=== PATIENT | female | born 1980 | race Caucasian/White ===

== ENCOUNTER 2017-01-09 17:40 | Inpatient (IN) | payer MEDICAID, OTHER ==
[2017-01-09 17:40] VITALS: BMI 26.6
--- NOTE | 2017-01-09 18:34 | C.PDOC ---
History Of Present Illness 36 year old pt presents to the ED with c/o right sided chest pain, SOB, cough, fever, and nausea that began today in the morning. Pt notes when coughing having green green sputum associated with fever to 104. Pt reports pain on inspiration and movement, and total body pain in which she is unable to describe well. Pt notes no infectious exposure and smokes 3 cigarettes a day. Pt denies diarrhea, dizziness, vomiting, or any other complaints. Pt reports chronic back pain for which she has a nerve stimulator in spine. Time Seen by Provider: 01/09/17 17:55 Chief Complaint (Nursing): Shortness Of Breath History Per: Patient History/Exam Limitations: no limitations Onset/Duration Of Symptoms: Hrs Current Symptoms Are (Timing): Still Present Severity: Mild Associated Symptoms: Nausea Exacerbating Factors: Movement, Deep Breathing Past Medical History Reviewed: Historical Data, Nursing Documentation, Vital Signs Vital Signs: Last Vital Signs Temp 98.9 F 01/09/17 17:43 Pulse 100 H 01/09/17 21:18 Resp 14 01/09/17 21:18 BP 110/64 01/09/17 21:18 Pulse Ox 100 01/09/17 22:13 - Medical History PMH: Anxiety, Arthritis, Asthma (SEASONAL), Back Problems, Depression Denies: Chronic Kidney Disease Surgical History: Tonsillectomy - [facility] Procedures ANESTH INJEC PERIPH NERV (09/01/14) ANESTH INJECT-SPIN CANAL (02/08/15) MONITORING NOS (02/23/14) INJECT STEROID (02/08/15) INJECT/INFUSE NEC (09/01/14) INJECTION INTO JOINT (09/01/14) PERIPH NERVE INJECT NEC (09/01/14) SPINAL CANAL INJECT NEC (04/21/15) Family History: States: Unknown Family Hx - Social History Hx Tobacco Use: Yes Hx Alcohol Use: No Hx Substance Use: No - Immunization History Hx Tetanus Toxoid Vaccination: No Hx Influenza Vaccination: No Hx Pneumococcal Vaccination: Yes Review Of Systems Except As Marked, All Systems Reviewed And Found Negative. Constitutional: Positive for: Fever (104 today) Cardiovascular: Positive for: Chest Pain (right sided) Respiratory: Positive for: Cough, Shortness of Breath Gastrointestinal: Positive for: Nausea. Negative for: Vomiting, Diarrhea Neurological: Negative for: Dizziness Physical Exam - Physical Exam Appears: Non-toxic, Other (uncomfortable) Skin: Warm, Dry Head: Atraumatic, Normacephalic Eye(s): bilateral: Normal Inspection Chest: Symmetrical Cardiovascular: No Rhythm Regular (tachycardia of 130), Other (Normal sounds) Respiratory: Rhonchi (Bilateral coarse rales), Other (Pain on inspiration. Deep wet cough.) Gastrointestinal/Abdominal: Soft, No Tenderness ED Course And Treatment - Laboratory Results Result Diagrams: 01/09/17 18:44 01/09/17 18:44 Lab Interpretation: Abnormal (elevated WBC 13.6 with left shift. Rapid flu negative) ECG Rhythm: Sinus Tachycardia (130) O2 Sat by Pulse Oximetry: 100 (Room air) Pulse Ox Interpretation: Normal - Radiology CXR: Interpreted by Nv CXR Interpretation: Yes: Other (RLL/RML infiltrate) - CT Scan/US CTA chest Other Rad Studies (CT/US): Read By Radiologist, Radiology Report Reviewed CT/US Interpretation: EXAM: CT Angiography Chest With Intravenous Contrast. CLINICAL HISTORY: 36 years old, female; Pain; Chest pain; Right-sided chest pain; Additional info: Chest pain,. tachycardia, pneumonia. TECHNIQUE: Axial computed tomographic angiography images of the chest with intravenous contrast using. pulmonary embolism protocol. This CT exam was performed using one or more of the following dose. reduction techniques: automated exposure control, adjustment of the mA and/or kV according to. patient size, and/or use of iterative reconstruction technique. Coronal and sagittal reformatted images were created and reviewed. CONTRAST: 100 mL of visipaque 320 administered intravenously. COMPARISON: No relevant prior studies available. FINDINGS: Pulmonary arteries: No filling defects are seen in the pulmonary arteries or in its visualized. tributaries. Aorta: The aorta and the great vessels are normal. Negative for dissection. Lungs: There is infiltration and airspace disease associated with the right middle lobe medial margin. concerning for pneumonia, with differential diagnosis of aspiration. The remainder of the lungs are. clear. Small benign cystic foci of the medial right apex. No mass. Pleural space: Unremarkable. No significant effusion. No pneumothorax. Heart: Unremarkable. No cardiomegaly. No significant pericardial effusion. No evidence of RV. dysfunction. Thyroid: The visualized thyroid and the thoracic inlet appear normal. Bones/joints: No acute fracture. No dislocation. Soft tissues: Unremarkable. Lymph nodes: Small nonspecific hilar nodes are present probably reactive. Upper abdomen: The visualized portions of the patient's liver, spleen , left kidney, pancreas, and. adrenals are within normal limits. Tubes, lines and devices: Neural stimulator device and leads appear in place. IMPRESSION: No definitive signs for pulmonary embolism. No evidence for aortic dissection. There is airspace. disease consistent with pneumonia located within the right middle lobe medial segment. Remaining. lungs clear. Reactive nodes in the ralf. Postsurgical changes. Thank you for allowing us to participate in the care of your patient. Dictated and Authenticated by: Keshawn Sahni MD. 10:07 PM Eastern Time ([place] & [place]) Progress Note: Patient treated with IV Doxycycline due to multiple antibiotic allergies that she claims anaphylactic reaction to. Reevaluation Time: 19:15 Reassessment Condition: Unchanged (Patient continues to c/o chest pain. CT angio ordered.) - Physician Consult Information Time Consulting Physician Contacted: 22:43 Physician Contacted: Mynor Hermosillo Outcome Of Conversation: Patient to be admitted for pneumonia with intractable chest pain. Medical Decision Making Medical Decision Making: Plans: -EKG -CXR -Blood labs -IV Fluids -Reassess and disposition Disposition - Disposition Disposition: HOSPITALIZED Disposition Time: 22:43 Condition: SERIOUS - POA Present On Arrival: None - Clinical Impression Clinical Impression: Pneumonia - Scribe Statement The provider has reviewed the documentation as recorded by the Scribe Damien carbajal All medical record entries made by the Scribe were at my direction and personally dictated by me. I have reviewed the chart and agree that the record accurately reflects my personal performance of the history, physical exam, medical decision making, and the department course for this patient. I have also personally directed, reviewed, and agree with the discharge instructions and disposition.
[2017-01-09 18:49] LABS: BASO % 0.3 % (0.0-2.0); EOS % 0.1 % (0.0-4.0); HEMATOCRIT 42.1 % (34.0-47.0); LYMPH # 0.7 K/uL (1.0-4.3); LYMPH % 5.4 % (20.0-40.0); MEAN CELL VOLUME 87.4 fL (81.0-99.0); MEAN CORPUSCULAR HEMOGLOBIN 28.6 pg (27.0-31.0); MEAN CORPUSCULAR HGB CONC 32.7 g/dL (33.0-37.0); MEAN PLATELET VOLUME 10.8 fL (7.2-11.7); MONO # 0.6 K/uL (0.0-0.8); MONO % 4.8 % (0.0-10.0); PLATELET COUNT 133 K/uL (130-400); RED CELL DISTRIBUTION WIDTH 13.2 % (11.5-14.5); WHITE BLOOD COUNT 13.6 K/uL (4.8-10.8)
[2017-01-09 18:56] LABS: CHLORIDE 95 mmol/L (98-107); SODIUM 135 mmol/L (132-148)
[2017-01-09 18:57] LABS: POTASSIUM 4.2 mmol/L (3.6-5.2)
[2017-01-09 18:59] LABS: ALB/GLOB RATIO 1.3 (1.0-2.1); ALKALINE PHOSPHATASE 79 U/L (38-126); AST/SGOT 15 U/L (14-36); BILIRUBIN,TOTAL 0.4 mg/dL (0.2-1.3); BLOOD UREA NITROGEN 8 mg/dL (7-17); CARBON DIOXIDE 28 mmol/L (22-30); GFR AFRICAN-AMERICAN > 60; GLUCOSE,RANDOM 106 mg/dL (65-105); TOTAL PROTEIN 7.3 g/dL (6.3-8.3)
[2017-01-09 19:00] LABS: ALT/SGPT 15 U/L (9-52); CALCIUM 8.7 mg/dl (8.6-10.4)
--- NOTE | 2017-01-09 19:00 | RAD ---
PROCEDURE: CHEST RADIOGRAPH, 1 VIEW HISTORY: SOB COMPARISON: None FINDINGS: LUNGS: There is ill-defined airspace disease in the right lower lobe. The left lung is clear. PLEURA: No pneumothorax or pleural fluid seen. CARDIOVASCULAR: Normal. OSSEOUS STRUCTURES: No significant abnormalities. VISUALIZED UPPER ABDOMEN: Normal. OTHER FINDINGS: None. IMPRESSION: Question of right lower lobe atelectasis/developing pneumonia. Follow-up PA and lateral radiographs are recommended.
[2017-01-09] MEDS ORDERED: Iodixanol 320 MG/ML 100 ML BOTTLE IV ONE (20:04)
[2017-01-09 20:32] LABS: NEUTROPHIL 83 % (50-75); TOTAL CELLS COUNTED 100
--- NOTE | 2017-01-09 22:53 | CP.PCM.HP ---
<Shanti Orona - Last Filed: 01/10/17 00:56> History of Present Illness - History of Present Illness History of Present Illness: CC: " chest pain and cough" 36 year old female with PMHx of asthma, chronic back pain presents with 1 day history of chest pain and cough. Patient reports chest pain began this morning and has never happened before. Chest pain is right sided, non radiating, persistent and rated at a 10/10. Nothing makes the pain better or worse. She did not take any medications to help the pain or cough. Admits to measured fevers of up to 104 at home with associated chills. She also complaints of body aches and SOB. She reports some cough with green, non bloody sputum since the morning of admission. Denies palpitations, diarrhea, abdominal pain, vomiting, constipation. She is experiencing some nausea. Denies sick contacts or recent travel. She admits to generalized body aches and back pain. However patient has a history of chronic back pain and surgical placement of "spine machine". She denies leg pain, leg swelling and does not take any form of contraceptive. Admits to smoking 3 cigarets per day. PMHX: Asthma, anxiety, chronic back pain, radiculopathy. Medications: Ventolin, Percocet QID, Gabapentin TID, Flexeril 10 mg PO TID, Klonopin 1 mg TID. Allergies: Cipro, Keflex., PCN, Flagyl. Social Hx: smokes 3 cigs per day, denies alcohol and or illicit drug use. She lives at home with her children. Surgery Hx: Spinal surgery with placement of neuro stimulator (still in place), tonsils removed as a teenager. Family Hx: denies PMD: Dr. More Present on Admission - Present on Admission Any Indicators Present on Admission: No Review of Systems - Constitutional Constitutional: Chills, Fatigue, Fever - EENT Eyes: absent: Blurred Vision, Change in Vision Ears: absent: Dizziness - Cardiovascular Cardiovascular: Chest Pain, Dyspnea. absent: Diaphoresis, Edema, Leg Edema, Pedal Edema, Radiating Pain, Rapid Heart Rate - Respiratory Respiratory: Cough, Dyspnea, Dyspnea on Exertion. absent: Wheezing - Gastrointestinal Gastrointestinal: Nausea. absent: Abdominal Pain, Constipation, Cramping, Diarrhea, Vomiting - Genitourinary Genitourinary: absent: Difficulty Urinating, Dysuria - Musculoskeletal Musculoskeletal: Back Pain, Myalgias. absent: Numbness, Tingling - Neurological Neurological: absent: Dizziness, Numbness, Tingling - Psychiatric Psychiatric: Anxiety. absent: Depression - Endocrine Endocrine: absent: Palpitations Past Patient History - Infectious Disease Hx of Infectious Diseases: None - Past Medical History & Family History Past Medical History?: Yes - Past Social History Smoking Status: Current Some Days Smoker - CARDIAC Hx Cardiac Disorders: No - PULMONARY Hx Asthma: Yes (SEASONAL) - NEUROLOGICAL Hx Neurological Disorder: No - HEENT Hx HEENT Problems: No - RENAL Hx Chronic Kidney Disease: No - ENDOCRINE/METABOLIC Hx Endocrine Disorders: No - HEMATOLOGICAL/ONCOLOGICAL Hx Blood Disorders: Yes Hx Blood Transfusions: Yes Hx Blood Transfusion Reaction: No - INTEGUMENTARY Hx Dermatological Problems: No - MUSCULOSKELETAL/RHEUMATOLOGICAL Hx Arthritis: Yes - GASTROINTESTINAL Hx Gastrointestinal Disorders: No - GENITOURINARY/GYNECOLOGICAL Hx Genitourinary Disorders: No - PSYCHIATRIC Hx Anxiety: Yes Hx Depression: Yes Hx Substance Use: No - SURGICAL HISTORY Hx Tonsillectomy: Yes - ANESTHESIA Hx Anesthesia: Yes Hx Anesthesia Reactions: No Hx Malignant Hyperthermia: No Meds Allergies/Adverse Reactions: Allergies Allergy/AdvReac Type Severity Reaction Status Date / Time cephalexin monohydrate Allergy ANAPHYLAXIS Verified 03/19/16 14:24 [From Keflex] ciprofloxacin [From Cipro] Allergy ANAPHYLAXIS Verified 03/19/16 14:24 metronidazole [From Flagyl] Allergy ANAPHYLAXIS Verified 03/19/16 14:24 Penicillins Allergy ANAPHYLAXIS Verified 03/19/16 14:24 sulfamethoxazole Allergy ANAPHYLAXIS Verified 03/19/16 14:24 [From Bactrim] Physical Exam - Constitutional Appears: No Acute Distress - Head Exam Head Exam: NORMAL INSPECTION, NORMOCEPHALIC - Eye Exam Eye Exam: EOMI, Normal appearance Pupil Exam: NORMAL ACCOMODATION - ENT Exam ENT Exam: Mucous Membranes Moist - Respiratory Exam Respiratory Exam: Decreased Breath Sounds, NORMAL BREATHING PATTERN. absent: Rales, Rhonchi, Wheezes - Cardiovascular Exam Cardiovascular Exam: REGULAR RHYTHM, +S1, +S2 - GI/Abdominal Exam GI & Abdominal Exam: Normal Bowel Sounds, Soft. absent: Distended, Tenderness - Extremities Exam Extremities exam: Positive for: full ROM, normal inspection, tenderness. Negative for: pedal pulses present - Back Exam Back exam: absent: NORMAL INSPECTION (surgical scar), tenderness - Neurological Exam Neurological exam: Alert, CN II-XII Intact, Oriented x3 - Psychiatric Exam Psychiatric exam: Flat Affect, Normal Mood - Skin Skin Exam: Dry, Warm Results - Vital Signs Recent Vital Signs: Last Vital Signs Temp 98.9 F 01/09/17 17:43 Pulse 100 H 01/09/17 21:18 Resp 14 01/09/17 21:18 BP 110/64 01/09/17 21:18 Pulse Ox 100 01/09/17 22:50 - Labs Result Diagrams: 01/09/17 18:44 01/09/17 18:44 Labs: Laboratory Results - last 24 hr 01/09/17 01/09/17 18:02 18:44 WBC 13.6 H RBC 4.81 Hgb 13.7 Hct 42.1 MCV 87.4 MCH 28.6 MCHC 32.7 L RDW 13.2 Plt Count 133 MPV 10.8 Neut % (Auto) 89.4 H Lymph % (Auto) 5.4 L Beadle % (Auto) 4.8 Eos % (Auto) 0.1 Baso % (Auto) 0.3 Neut # 12.2 H Lymph # 0.7 L Beadle # 0.6 Eos # 0.0 Baso # 0.0 Neutrophils % (Manual) 83 H Band Neutrophils % 7 H Lymphocytes % (Manual) 6 L Monocytes % (Manual) 4 Platelet Estimate Normal D-Dimer, Quantitative < 200 Sodium 135 Potassium 4.2 Chloride 95 L Carbon Dioxide 28 Anion Gap 16 BUN 8 Creatinine 0.4 L Est GFR ( Amer) > 60 Est GFR (Non-Af Amer) > 60 Random Glucose 106 H Calcium 8.7 Total Bilirubin 0.4 AST 15 ALT 15 Alkaline Phosphatase 79 Total Protein 7.3 Albumin 4.1 Globulin 3.2 Albumin/Globulin Ratio 1.3 Influenza Typ A,B (EIA) Negative for flu a/b Assessment & Plan (1) Chest pain Assessment and Plan: Patient with sinus tach on EK bpm. CTA did not show pulmonary embolism. HR improved 100 bpm. f/u ISABELLA Q6H f/u EKG Q6H f/u Hgb A1C, TSH, FLP. Percocet BID PRN (home med). Status: Acute (2) Pneumonia Assessment and Plan: Patient with reported allergies to multiple antibiotics. Chest CT showed right middle lobe pneumonia. Start Doxy IVPB Q12H NSS at 100 cc/hr Status: Acute (3) Asthma Assessment and Plan: Duonebs Q6H PRN Continue home med of Ventolin HFA Status: Acute (4) Chronic back pain Assessment and Plan: Patient with neuro stimulator still in place. Continue home meds: Percocet 5/325 PO BID PRN (7.5/325 mg dose not on formulary) Flexeril 10 mg PO TID Gabapentin 400 mg PO TID Status: Acute (5) Anxiety Assessment and Plan: Patient takes Klonopin 1 mg PO TID at home. Status: Acute (6) Prophylactic measure Assessment and Plan: SCDs Protonix 40 mg PO daily. Status: Acute <Mynor Hermosillo - Last Filed: 01/10/17 06:24> Results - Vital Signs Recent Vital Signs: Last Vital Signs Temp 98 F 01/10/17 04:22 Pulse 84 01/10/17 04:22 Resp 18 01/10/17 04:22 BP 109/60 01/10/17 04:22 Pulse Ox 98 01/10/17 04:22 - Labs Result Diagrams: 01/09/17 18:44 01/09/17 18:44 Assessment & Plan - Date & Time Date: 01/10/17 (I have seen and examined the patient. I agree with the findings and plan of care as documented by Dr. Orona. Patient with pneumonia and complaining of chest pain. Also with history of asthma. ROMIx3 with EKG. Doxy IV due to multiple antibiotic allergies. Nebs as needed. Oxygen. Monitor for acute changes.) Time: 06:23 Attending/Attestation - Attestation I have personally seen and examined this patient.: Yes I have fully participated in the care of the patient.: Yes I have reviewed all pertinent clinical information: Yes
[2017-01-09] MEDS ORDERED: Oxycodone/Acetaminophen 5/325 mg Tab PO PRN (23:46)
[2017-01-09] MEDS ORDERED: Albuterol HFA 90 mcg/actuation (8 g) IH PRN (23:46)
[2017-01-10] MEDS: Sodium Chloride 0.9% 1,000 ML IV SCH ×2 (00:24→18:50)
[2017-01-10 08:41] LABS: CHLORIDE 102 mmol/L (98-107); POTASSIUM 3.9 mmol/L (3.6-5.2); SODIUM 139 mmol/L (132-148)
[2017-01-10 08:43] LABS: ALB/GLOB RATIO 1.2 (1.0-2.1); ALKALINE PHOSPHATASE 76 U/L (38-126); AST/SGOT 16 U/L (14-36); BILIRUBIN,TOTAL 0.8 mg/dL (0.2-1.3); BLOOD UREA NITROGEN 8 mg/dL (7-17); CARBON DIOXIDE 27 mmol/L (22-30); CHOLESTEROL 109 mg/dL (0-199); GFR AFRICAN-AMERICAN > 60; TOTAL PROTEIN 6.7 g/dL (6.3-8.3)
[2017-01-10 08:44] LABS: ALT/SGPT 16 U/L (9-52); CALCIUM 8.5 mg/dl (8.6-10.4); GLUCOSE,RANDOM 104 mg/dL (65-105)
[2017-01-10 08:51] LABS: BASO % 0.3 % (0.0-2.0); EOS % 0.1 % (0.0-4.0); HEMATOCRIT 42.9 % (34.0-47.0); LYMPH # 1.4 K/uL (1.0-4.3); LYMPH % 11.4 % (20.0-40.0); MEAN CELL VOLUME 88.1 fL (81.0-99.0); MEAN CORPUSCULAR HEMOGLOBIN 28.4 pg (27.0-31.0); MEAN CORPUSCULAR HGB CONC 32.2 g/dL (33.0-37.0); MEAN PLATELET VOLUME 10.4 fL (7.2-11.7); MONO # 0.6 K/uL (0.0-0.8); MONO % 4.5 % (0.0-10.0); RED CELL DISTRIBUTION WIDTH 13.3 % (11.5-14.5); WHITE BLOOD COUNT 12.5 K/uL (4.8-10.8)
[2017-01-10 09:04] LABS: RBC URINE 1 /hpf (0-3); URINE BILIRUBIN NEGATIVE (NEGATIVE); URINE BLOOD NEGATIVE (NEGATIVE); URINE COLOR Yellow (YELLOW); URINE GLUCOSE (UA) NORMAL (Normal); URINE KETONE NEGATIVE (NEGATIVE); URINE LEUKOCYTE ESTERASE NEG Leu/uL (Negative); URINE PROTEIN NEGATIVE (NEGATIVE); URINE UROBILINOGEN NORMAL mg/dL (0.2-1.0); WBC URINE 1 /hpf (0-5)
[2017-01-10] MEDS: Pantoprazole 40 mg EC Tab PO SCH (09:08)
[2017-01-10] MEDS ORDERED: Oxycodone/Acetaminophen 5/325 mg Tab ONE (09:16)
[2017-01-10 09:17] LABS: THYROID STIMULATING HORMONE 0.24 mIU/L (0.46-4.68)
--- NOTE | 2017-01-10 09:51 | CT ---
PROCEDURE: CT Chest with contrast (Pulmonary Angiogram) HISTORY: chest pain, tachycardia, pneumonia COMPARISON: None available. TECHNIQUE: Axial computed tomography images were obtained of the chest in the pulmonary arterial phase of enhancement. Coronal and sagittal reformatted images were created and reviewed. Intravenous contrast dose: 100 cc of Visipaque Radiation dose: Total exam DLP = 253 mGy-cm. FINDINGS: PULMONARY ARTERIES: Unremarkable. No pulmonary embolism. AORTA: No acute findings. No thoracic aortic aneurysm. LUNGS: There is a dense alveolar infiltrate in the right middle lobe consistent with pneumonia PLEURAL SPACES: Unremarkable. No effusion or pneuomothorax. HEART: Unremarkable. No cardiomegaly. No significant pericardial effusion. LYMPH NODES: No lymphadenopathy. BONES, CHEST WALL: Unremarkable. No fracture or destructive lesion OTHER FINDINGS: Unremarkable. IMPRESSION: Right middle lobe pneumonia. No evidence of pulmonary embolus
[2017-01-10] MEDS ORDERED: Albuterol HFA 90 mcg/actuation (8 g) IH PRN (10:45)
--- NOTE | 2017-01-10 15:12 | CP.PCM.PN ---
<Isaac Cherry - Last Filed: 01/10/17 15:05> Subjective - Date & Time of Evaluation Date of Evaluation: 01/10/17 Time of Evaluation: 15:05 - Subjective Subjective: pGY-1 note for medicine service Pt seen and examined at bedside. Pt reports that the chest pain has gotten mildly better. She complains of whole body pains and states that she is not getting her home dose of medications. Denies any fevers, chills, nausea or vomiting. Objective - Vital Signs/Intake and Output Vital Signs (last 24 hours): Temp Pulse Resp BP Pulse Ox 98.2 F 96 H 20 104/71 99 01/10/17 11:57 01/10/17 11:57 01/10/17 11:57 01/10/17 11:57 01/10/17 11:57 - Medications Medications: Current Medications Acetaminophen (Tylenol 325mg Tab) 650 mg PO Q6 PRN PRN Reason: Fever >100.4 F Last Admin: 01/10/17 09:09 Dose: 650 mg Albuterol/Ipratropium (Duoneb 3 Mg/0.5 Mg (3 Ml) Ud) 3 ml INH RQ6 PRN PRN Reason: Shortness of Breath Clonazepam (Klonopin) 1 mg PO TID [facility] Last Admin: 01/10/17 14:29 Dose: 1 mg Cyclobenzaprine HCl (Flexeril) 10 mg PO TID [facility] Last Admin: 01/10/17 14:29 Dose: 10 mg Gabapentin (Neurontin) 400 mg PO TID [facility] Last Admin: 01/10/17 14:29 Dose: 400 mg Doxycycline Hyclate 100 mg/ (Sodium Chloride) 100 mls @ 100 mls/hr IVPB Q12H [facility] Last Admin: 01/10/17 09:08 Dose: 100 mls/hr Sodium Chloride (Sodium Chloride 0.9%) 1,000 mls @ 100 mls/hr IV .Q10H [facility] Last Admin: 01/10/17 00:24 Dose: 100 mls/hr Nicotine (Nicoderm Cq) 1 patch TD DAILY [facility] Last Admin: 01/10/17 14:20 Dose: 1 patch Ondansetron HCl (Zofran Inj) 4 mg IVP Q6 PRN PRN Reason: Nausea/Vomiting Oxycodone/Acetaminophen (Percocet 5/325 Mg Tab) 2 tab PO Q6H PRN PRN Reason: Pain, severe (8-10) Stop: 01/13/17 14:14 Pantoprazole Sodium (Protonix Ec Tab) 40 mg PO DAILY [facility] Last Admin: 01/10/17 09:08 Dose: 40 mg - Labs Labs: 01/10/17 08:42 01/10/17 08:28 - Constitutional Appears: Non-toxic, No Acute Distress - Head Exam Head Exam: ATRAUMATIC, NORMOCEPHALIC - Eye Exam Eye Exam: Normal appearance Pupil Exam: PERRL - ENT Exam ENT Exam: Mucous Membranes Moist - Respiratory Exam Respiratory Exam: Clear to Ausculation Bilateral, NORMAL BREATHING PATTERN. absent: Rales, Wheezes - Cardiovascular Exam Cardiovascular Exam: +S1, +S2 - GI/Abdominal Exam GI & Abdominal Exam: Soft, Normal Bowel Sounds - Neurological Exam Neurological Exam: Alert, Awake - Skin Skin Exam: Dry, Warm Assessment and Plan - Assessment and Plan (Free Text) Assessment: Chest pain - Patient with sinus tach on EK bpm. - CTA did not show pulmonary embolism. - HR improved 100 bpm. - ISABELLA neg x 1, f/u serial - Hgb A1C 5.4 - Thyroid panel - WNL - Lipids - wnl - Percocet 5/325 2 tabs q6h Pneumonia - Patient with reported allergies to multiple antibiotics. - Chest CT showed right middle lobe pneumonia. - Start Doxy IVPB Q12H - NSS at 100 cc/hr - ID consult - Mangia - help appreciated Asthma - Duonebs Q6H PRN - Monitor Chronic back pain - Patient with neuro stimulator still in place. - Continue home meds: - Percocet 5/325 PO 2 tabs Q6H - Flexeril 10 mg PO TID - Gabapentin 400 mg PO TID Anxiety - Patient takes Klonopin 1 mg PO TID at home. Prophylactic measure - SCDs - Protonix 40 mg PO daily. <Kevin Vargas - Last Filed: 01/10/17 17:30> Objective - Vital Signs/Intake and Output Vital Signs (last 24 hours): Temp Pulse Resp BP Pulse Ox 97.9 F 75 20 96/62 L 98 01/10/17 16:00 01/10/17 16:00 01/10/17 16:00 01/10/17 16:00 01/10/17 16:00 - Medications Medications: Current Medications Acetaminophen (Tylenol 325mg Tab) 650 mg PO Q6 PRN PRN Reason: Fever >100.4 F Last Admin: 01/10/17 09:09 Dose: 650 mg Albuterol/Ipratropium (Duoneb 3 Mg/0.5 Mg (3 Ml) Ud) 3 ml INH RQ6 PRN PRN Reason: Shortness of Breath Clonazepam (Klonopin) 1 mg PO TID [facility] Last Admin: 01/10/17 14:29 Dose: 1 mg Cyclobenzaprine HCl (Flexeril) 10 mg PO TID [facility] Last Admin: 01/10/17 14:29 Dose: 10 mg Gabapentin (Neurontin) 400 mg PO TID [facility] Last Admin: 01/10/17 14:29 Dose: 400 mg Doxycycline Hyclate 100 mg/ (Sodium Chloride) 100 mls @ 100 mls/hr IVPB Q12H [facility] Last Admin: 01/10/17 09:08 Dose: 100 mls/hr Sodium Chloride (Sodium Chloride 0.9%) 1,000 mls @ 100 mls/hr IV .Q10H [facility] Last Admin: 01/10/17 00:24 Dose: 100 mls/hr Nicotine (Nicoderm Cq) 1 patch TD DAILY [facility] Last Admin: 01/10/17 14:20 Dose: 1 patch Ondansetron HCl (Zofran Inj) 4 mg IVP Q6 PRN PRN Reason: Nausea/Vomiting Oxycodone/Acetaminophen (Percocet 5/325 Mg Tab) 2 tab PO Q6H PRN PRN Reason: Pain, severe (8-10) Stop: 01/13/17 14:14 Pantoprazole Sodium (Protonix Ec Tab) 40 mg PO DAILY [facility] Last Admin: 01/10/17 09:08 Dose: 40 mg - Labs Labs: 01/10/17 08:42 01/10/17 08:28 Attending/Attestation - Attestation I have personally seen and examined this patient.: Yes I have fully participated in the care of the patient.: Yes I have reviewed all pertinent clinical information, including history, physical exam and plan: Yes Notes (Text): 01/10/17 17:30 Patient was seen and examined at bedside with the resident Still complains of for pain in the right side of the chest upon inspiration Difficult to take a deep breath We will continue IV antibiotics We'll request infectious consultation We will continue medication for her pain as per her regimen which she uses at home.
[2017-01-10] MEDS: Oxycodone/Acetaminophen 5/325 mg Tab PO PRN (18:44)
--- NOTE | 2017-01-10 18:46 | CP.PCM.CON ---
History of Present Illness - History of Present Illness History of Present Illness: 36 year old female with presents with 1 day history of chest pain and cough. found to have rml pneumonia ID consulted- multiple allergies PMHX: Asthma, anxiety, chronic back pain, radiculopathy. Medications: Ventolin, Percocet QID, Gabapentin TID, Flexeril 10 mg PO TID, Klonopin 1 mg TID. Allergies: Cipro, Keflex., PCN, Flagyl. Social Hx: smokes 3 cigs per day, denies alcohol and or illicit drug use. She lives at home with her children. Surgery Hx: Spinal surgery with placement of neuro stimulator (still in place), tonsils removed as a teenager. Family Hx: denies Review of Systems - Constitutional Constitutional: As Per HPI - EENT Eyes: absent: As Per HPI, Blind Spots, Blurred Vision, Change in Vision, Decreased Night Vision, Diplopia, Discharge, Dry Eye, Exophthalmos, Floaters, Irritation, Itchy Eyes, Loss of Peripheral Vision, Pain, Photophobia, Requires Corrective Lenses, Sees Flashes, Spots in Vision, Tunnel Vision, Other Visual Disturbances, Loss of Vision, Other Ears: absent: As Per HPI, Decreased Hearing, Ear Discharge, Ear Pain, Tinnitus, Abnormal Hearing, Disequilibrium, Dizziness, Other Nose/Mouth/Throat: absent: As Per HPI, Epistaxis, Nasal Congestion, Nasal Discharge, Nasal Obstruction, Nasal Trauma, Nose Pain, Post Nasal Drip, Sinus Pain, Sinus Pressure, Bleeding Gums, Change in Voice, Dental Pain, Dry Mouth, Dysphagia, Halitosis, Hoarsness, Lip Swelling, Mouth Lesions, Mouth Pain, Odynophagia, Sore Throat, Throat Swelling, Tongue Swelling, Facial Pain, Neck Pain, Neck Mass, Other - Breasts Breasts: absent: As Per HPI, Change in Shape, Mass, Pain, Nipple Discharge, Nipple Inversion, Skin Changes, Swelling, Other - Cardiovascular Cardiovascular: absent: As Per HPI, Acrocyanosis, Chest Pain, Chest Pain at Rest , Chest Pain with Activity, Claudication, Diaphoresis, Dyspnea, Dyspnea on Exertion, Edema, Irregular Heart Rhythm, Pain Radiating to Arm/Neck/Jaw, Leg Edema, Leg Ulcers, Lightheadedness, Orthopnea, Palpitations, Paroxysmal Nocturnal Dyspnea, Pedal Edema, Radiating Pain, Rapid Heart Rate, Slow Heart Rate, Syncope, Other - Respiratory Respiratory: As Per HPI, Cough. absent: Hemoptysis - Gastrointestinal Gastrointestinal: absent: As Per HPI, Abdominal Pain, Belching, Bloating, Change in Bowel Habits, Change in Stool Character, Coffee Ground Emesis, Constipation, Cramping, Diarrhea, Dyspepsia, Dysphagia, Early Satiety, Excessive Flatus, Fecal Incontinence, Heartburn, Hematemesis, Hematochezia, Loose Stools, Melena, Nausea, Odynophagia, Temesmus, Vomiting, Other - Genitourinary Genitourinary: absent: As Per HPI, Change in Urinary Stream, Difficulty Urinating, Dysuria, Flank Pain, Hematuria, Pyuria, Nocturia, Urinary Incontinence, Urinary Frequency, Urinary Hesitance, Urinary Urgency, Voiding Freq/Small Amts, Freq UTI, Hx Renal/Bladder Calculi, Hx /Renal Surgery, Bladder Distension, Other - Reproductive: Female Reproductive:Female: absent: As Per HPI, Amenorrhea, Amenorrhea/ Control, Currently Menstual, Cycle <21 Days, Cycle >35 Days, Cycle Variable, Menses 1-7 Days, Menses >/= 8 Days, Menses Variable, Cycle > 4 Weeks Between, No Menses for 6 Months, Heavy Menses, Light Menses, Normal Menses, Spotting Between Cycles , S/P Hysterectomy, Menopausal, Post Menopausal, Premenarche, Abnormal Vaginal Bleeding, Dysmenorrhea, Dyspareunia, Genital Lesions, Genital Pruritis, Pelvic Pain, Prolapse Symptoms, Sexual Dysfunction, Vaginal Discharge, Vaginal Dryness , Vaginal Odor, Vaginal Pruritis, Other - Menstruation Menstruation: absent: As Per HPI, Amenorrhea, Amenorrhea/ Control, Currently Menstual, Cycle <21 Days, Cycle >35 Days, Cycle Variable, Menses 1-7 Days, Menses >/= 8 Days, Menses Variable, Cycle > 4 Weeks Between, No Menses for 6 Months, Heavy Menses, Light Menses, Normal Menses, Spotting Between Cycles , S/P Hysterectomy, Menopausal, Post Menopausal, Premenarche, Abnormal Vaginal Bleeding, Dysmenorrhea, Other - Musculoskeletal Musculoskeletal: As Per HPI - Integumentary Integumentary: absent: As Per HPI, Acne, Alopecia, Bleeding Lesions, Change in Hair, Change in Nails, Change in Pigmentation, Changing Lesions, Dry Skin, Erythema, Furuncle, Hirsutism, Lesions, New Lesions, Non-Healing Lesions, Photosensitivity, Pruritus, Rash, Skin Pain, Skin Ulcer, Sores, Striae, Swelling , Unusual Bruising, Wounds, Jaundice, Other - Neurological Neurological: As Per HPI - Psychiatric Psychiatric: absent: As Per HPI, Abnormal Sleep Pattern, Anhedonia, Anxiety, Auditory Hallucinations, Behavioral Changes, Change in Appetite, Change in Libido, Confusion, Depression, Difficulty Concentrating, Hallucinations, Homicidal Ideation, Hopelessness, Irritability, Memory Loss, Mood Swings, Panic Attacks, Paranoia, Suicidal Ideation, Visual Hallucinations, Tactile Hallucinations, Other - Endocrine Endocrine: absent: As Per HPI, Change in Body Appearance, Change in Libido, Cold Intolorance, Deepening of Voice, Excessive Sweating, Fatigue, Flushing, Heat Intolorance, Increase in Ring/Shoe/Hat Size, Palpitations, Polydipsia, Polyphagia, Polyuria, Other Past Patient History - Infectious Disease Hx of Infectious Diseases: None - Past Medical History & Family History Past Medical History?: Yes - Past Social History Smoking Status: Current Some Days Smoker - CARDIAC Hx Cardiac Disorders: No - PULMONARY Hx Asthma: Yes (SEASONAL) - NEUROLOGICAL Hx Neurological Disorder: No - HEENT Hx HEENT Problems: No - RENAL Hx Chronic Kidney Disease: No - ENDOCRINE/METABOLIC Hx Endocrine Disorders: No - HEMATOLOGICAL/ONCOLOGICAL Hx Blood Disorders: Yes Hx Blood Transfusions: Yes Hx Blood Transfusion Reaction: No - INTEGUMENTARY Hx Dermatological Problems: No - MUSCULOSKELETAL/RHEUMATOLOGICAL Hx Arthritis: Yes Hx Falls: Yes - GASTROINTESTINAL Hx Gastrointestinal Disorders: No - GENITOURINARY/GYNECOLOGICAL Hx Genitourinary Disorders: No - PSYCHIATRIC Hx Anxiety: Yes Hx Depression: Yes Hx Substance Use: Yes - SURGICAL HISTORY Hx Tonsillectomy: Yes - ANESTHESIA Hx Anesthesia: Yes Hx Anesthesia Reactions: No Hx Malignant Hyperthermia: No Meds Allergies/Adverse Reactions: Allergies Allergy/AdvReac Type Severity Reaction Status Date / Time cephalexin monohydrate Allergy ANAPHYLAXIS Verified 03/19/16 14:24 [From Keflex] ciprofloxacin [From Cipro] Allergy ANAPHYLAXIS Verified 03/19/16 14:24 metronidazole [From Flagyl] Allergy ANAPHYLAXIS Verified 03/19/16 14:24 Penicillins Allergy ANAPHYLAXIS Verified 03/19/16 14:24 sulfamethoxazole Allergy ANAPHYLAXIS Verified 03/19/16 14:24 [From Bactrim] - Medications Medications: Current Medications Acetaminophen (Tylenol 325mg Tab) 650 mg PO Q6 PRN PRN Reason: Fever >100.4 F Last Admin: 01/10/17 09:09 Dose: 650 mg Albuterol/Ipratropium (Duoneb 3 Mg/0.5 Mg (3 Ml) Ud) 3 ml INH RQ6 PRN PRN Reason: Shortness of Breath Clonazepam (Klonopin) 1 mg PO TID [facility] Last Admin: 01/10/17 14:29 Dose: 1 mg Cyclobenzaprine HCl (Flexeril) 10 mg PO TID [facility] Last Admin: 01/10/17 14:29 Dose: 10 mg Gabapentin (Neurontin) 400 mg PO TID [facility] Last Admin: 01/10/17 14:29 Dose: 400 mg Doxycycline Hyclate 100 mg/ (Sodium Chloride) 100 mls @ 100 mls/hr IVPB Q12H [facility] Last Admin: 01/10/17 09:08 Dose: 100 mls/hr Sodium Chloride (Sodium Chloride 0.9%) 1,000 mls @ 100 mls/hr IV .Q10H [facility] Last Admin: 01/10/17 00:24 Dose: 100 mls/hr Nicotine (Nicoderm Cq) 1 patch TD DAILY [facility] Last Admin: 01/10/17 14:20 Dose: 1 patch Ondansetron HCl (Zofran Inj) 4 mg IVP Q6 PRN PRN Reason: Nausea/Vomiting Oxycodone/Acetaminophen (Percocet 5/325 Mg Tab) 2 tab PO Q6H PRN PRN Reason: Pain, severe (8-10) Stop: 01/13/17 14:14 Pantoprazole Sodium (Protonix Ec Tab) 40 mg PO DAILY [facility] Last Admin: 01/10/17 09:08 Dose: 40 mg Physical Exam - Constitutional Appears: Non-toxic, Chronically Ill - Head Exam Head Exam: NORMOCEPHALIC - ENT Exam ENT Exam: Mucous Membranes Dry - Neck Exam Neck exam: Negative for: Lymphadenopathy - Respiratory Exam Respiratory Exam: Decreased Breath Sounds, Rhonchi - Cardiovascular Exam Cardiovascular Exam: REGULAR RHYTHM, +S1, +S2 - GI/Abdominal Exam GI & Abdominal Exam: Diminished Bowel Sounds, Soft. absent: Tenderness - Rectal Exam Rectal Exam: Deferred - Exam Exam: NORMAL INSPECTION - Extremities Exam Extremities exam: Negative for: calf tenderness, pedal edema - Back Exam Back exam: absent: CVA tenderness (L), CVA tenderness (R), paraspinal tenderness - Neurological Exam Neurological exam: Alert, CN II-XII Intact, Oriented x3, Reflexes Normal - Psychiatric Exam Psychiatric exam: Normal Mood - Skin Skin Exam: Dry Results - Vital Signs Recent Vital Signs: Last Vital Signs Temp 97.9 F 01/10/17 16:00 Pulse 75 01/10/17 16:00 Resp 20 01/10/17 16:00 BP 96/62 L 01/10/17 16:00 Pulse Ox 98 01/10/17 16:00 - Labs Result Diagrams: 01/10/17 08:42 01/10/17 08:28 Labs: Laboratory Results - last 24 hr 01/10/17 01/10/17 01/10/17 08:28 08:42 08:53 WBC 12.5 H RBC 4.87 Hgb 13.8 Hct 42.9 MCV 88.1 MCH 28.4 MCHC 32.2 L RDW 13.3 Plt Count 140 MPV 10.4 Neut % (Auto) 83.7 H Lymph % (Auto) 11.4 L [place] % (Auto) 4.5 Eos % (Auto) 0.1 Baso % (Auto) 0.3 Neut # 10.5 H Lymph # 1.4 [place] # 0.6 Eos # 0.0 Baso # 0.0 Sodium 139 Potassium 3.9 Chloride 102 Carbon Dioxide 27 Anion Gap 15 BUN 8 Creatinine 0.4 L Est GFR ( Amer) > 60 Est GFR (Non-Af Amer) > 60 Random Glucose 104 Hemoglobin A1c 5.4 Calcium 8.5 L Total Bilirubin 0.8 AST 16 ALT 16 Alkaline Phosphatase 76 Total Creatine Kinase < 20 L CK-MB (Mass) < 0.22 Troponin I, Quant < 0.0120 Total Protein 6.7 Albumin 3.7 Globulin 3.0 Albumin/Globulin Ratio 1.2 Triglycerides 57 Cholesterol 109 LDL Cholesterol Direct 54 HDL Cholesterol 34 TSH 3rd Generation 0.24 L Urine Color Yellow Urine Clarity Clear Urine pH 7.0 Ur Specific [place] 1.015 Urine Protein Negative Urine Glucose (UA) Normal Urine Ketones Negative Urine Blood Negative Urine Nitrate Negative Urine Bilirubin Negative Urine Urobilinogen Normal Ur Leukocyte Esterase Neg Urine WBC (Auto) 1 Urine RBC (Auto) 1 Ur Squamous Epith Cells 5 Urine Opiates Screen Positive Urine Methadone Screen Negative Ur Barbiturates Screen Negative Ur Phencyclidine Scrn Negative Ur Amphetamines Screen Negative U Benzodiazepines Scrn Negative U Oth Cocaine Metabols Negative U Cannabinoids Screen Negative 01/10/17 17:48 WBC RBC Hgb Hct MCV MCH MCHC RDW Plt Count MPV Neut % (Auto) Lymph % (Auto) [place] % (Auto) Eos % (Auto) Baso % (Auto) Neut # Lymph # [place] # Eos # Baso # Sodium Potassium Chloride Carbon Dioxide Anion Gap BUN Creatinine Est GFR ( Amer) Est GFR (Non-Af Amer) Random Glucose Hemoglobin A1c Calcium Total Bilirubin AST ALT Alkaline Phosphatase Total Creatine Kinase < 20 L CK-MB (Mass) < 0.22 Troponin I, Quant < 0.0120 Total Protein Albumin Globulin Albumin/Globulin Ratio Triglycerides Cholesterol LDL Cholesterol Direct HDL Cholesterol TSH 3rd Generation Urine Color Urine Clarity Urine pH Ur Specific [place] Urine Protein Urine Glucose (UA) Urine Ketones Urine Blood Urine Nitrate Urine Bilirubin Urine Urobilinogen Ur Leukocyte Esterase Urine WBC (Auto) Urine RBC (Auto) Ur Squamous Epith Cells Urine Opiates Screen Urine Methadone Screen Ur Barbiturates Screen Ur Phencyclidine Scrn Ur Amphetamines Screen U Benzodiazepines Scrn U Oth Cocaine Metabols U Cannabinoids Screen Assessment & Plan (1) Chronic back pain Status: Acute - Assessment and Plan (Free Text) Assessment: await cultures cont iv rx
--- NOTE | 2017-01-10 21:28 | CARD ---
APPROVED REPORT EKG Measurement Heart [id number] <Conclusion> Sinus tachycardia Otherwise normal ECG
[2017-01-10] MEDS: Albuterol-Ipratrop 3 mg / 0.5 (3 ml) UD INH PRN (22:09)
[2017-01-11] MEDS: Sodium Chloride 0.9% 1,000 ML IV SCH ×3 (00:23→16:00)
[2017-01-11] MEDS: Oxycodone/Acetaminophen 5/325 mg Tab PO PRN ×4 (00:23→18:29)
[2017-01-11] MEDS: Albuterol-Ipratrop 3 mg / 0.5 (3 ml) UD INH PRN ×3 (07:15→19:55)
[2017-01-11] MEDS: Pantoprazole 40 mg EC Tab PO SCH (09:43)
[2017-01-11 12:12] LABS: BASO % 0.5 % (0.0-2.0); EOS # 0.1 K/uL (0.0-0.7); EOS % 1.2 % (0.0-4.0); HEMATOCRIT 35.1 % (34.0-47.0); LYMPH # 1.7 K/uL (1.0-4.3); LYMPH % 31.8 % (20.0-40.0); MEAN CELL VOLUME 88.8 fL (81.0-99.0); MEAN CORPUSCULAR HEMOGLOBIN 28.6 pg (27.0-31.0); MEAN CORPUSCULAR HGB CONC 32.2 g/dL (33.0-37.0); MEAN PLATELET VOLUME 10.6 fL (7.2-11.7); MONO # 0.3 K/uL (0.0-0.8); MONO % 6.2 % (0.0-10.0); RED CELL DISTRIBUTION WIDTH 13.8 % (11.5-14.5)
[2017-01-11 12:19] LABS: WHITE BLOOD COUNT 5.2 K/uL (4.8-10.8)
--- NOTE | 2017-01-11 13:39 | CP.PCM.PN ---
<Isaac Cherry - Last Filed: 01/11/17 13:34> Subjective - Date & Time of Evaluation Date of Evaluation: 01/11/17 Time of Evaluation: 13:34 - Subjective Subjective: PGY - 1 note for medicine service Pt seen and examined at bedside. Pt states she feels better today with less pain in her chest. She denies any fevers, chills, chest pain, sob, nausea or vomiting. Objective - Vital Signs/Intake and Output Vital Signs (last 24 hours): Temp Pulse Resp BP Pulse Ox 97.5 F L 91 H 18 105/69 100 01/11/17 08:00 01/11/17 08:00 01/11/17 08:00 01/11/17 08:00 01/11/17 08:00 Intake and Output: 01/11/17 01/11/17 06:59 18:59 Intake Total 1540 Balance 1540 - Medications Medications: Current Medications Acetaminophen (Tylenol 325mg Tab) 650 mg PO Q6 PRN PRN Reason: Fever >100.4 F Last Admin: 01/10/17 09:09 Dose: 650 mg Albuterol/Ipratropium (Duoneb 3 Mg/0.5 Mg (3 Ml) Ud) 3 ml INH RQ6 PRN PRN Reason: Shortness of Breath Last Admin: 01/11/17 13:23 Dose: 3 ml Clonazepam (Klonopin) 1 mg PO TID [facility] Last Admin: 01/11/17 09:43 Dose: 1 mg Cyclobenzaprine HCl (Flexeril) 10 mg PO TID [facility] Last Admin: 01/11/17 09:43 Dose: 10 mg Gabapentin (Neurontin) 400 mg PO TID [facility] Last Admin: 01/11/17 09:43 Dose: 400 mg Doxycycline Hyclate 100 mg/ (Sodium Chloride) 100 mls @ 100 mls/hr IVPB Q12H [facility] Last Admin: 01/11/17 06:33 Dose: 100 mls/hr Sodium Chloride (Sodium Chloride 0.9%) 1,000 mls @ 100 mls/hr IV .Q10H [facility] Last Admin: 01/11/17 05:44 Dose: Not Given Nicotine (Nicoderm Cq) 1 patch TD DAILY [facility] Last Admin: 01/11/17 09:43 Dose: 1 patch Ondansetron HCl (Zofran Inj) 4 mg IVP Q6 PRN PRN Reason: Nausea/Vomiting Oxycodone/Acetaminophen (Percocet 5/325 Mg Tab) 2 tab PO Q6H PRN PRN Reason: Pain, severe (8-10) Stop: 01/13/17 14:14 Last Admin: 01/11/17 12:33 Dose: 2 tab Pantoprazole Sodium (Protonix Ec Tab) 40 mg PO DAILY [facility] Last Admin: 01/11/17 09:43 Dose: 40 mg - Labs Labs: 01/11/17 12:06 01/10/17 08:28 - Constitutional Appears: Non-toxic, No Acute Distress - Head Exam Head Exam: ATRAUMATIC, NORMOCEPHALIC - ENT Exam ENT Exam: Mucous Membranes Moist - Respiratory Exam Respiratory Exam: Clear to Ausculation Bilateral, NORMAL BREATHING PATTERN. absent: Rales, Rhonchi, Wheezes - Cardiovascular Exam Cardiovascular Exam: +S1, +S2 - GI/Abdominal Exam GI & Abdominal Exam: Soft, Normal Bowel Sounds - Back Exam Back Exam: NORMAL INSPECTION Additional comments: scar noted - Neurological Exam Neurological Exam: Alert, Awake - Skin Skin Exam: Dry, Warm Assessment and Plan - Assessment and Plan (Free Text) Assessment: Chest pain - Chest pain very mild today - Patient with sinus tach on EK bpm. - CTA did not show pulmonary embolism. - HR improved 100 bpm. - ISABELLA neg x 3 - Hgb A1C 5.4 - Thyroid panel - WNL - Lipids - wnl - Percocet 5/325 2 tabs q6h Pneumonia - Reports less pain and saturating well. - Patient with reported allergies to multiple antibiotics. - Chest CT showed right middle lobe pneumonia. - Start Doxy IVPB Q12H - NSS at 100 cc/hr - ID consult - [place] - help appreciated - Awaiting cultures - Cont IV doxy - Blood cx - no growth after 24 hours Asthma - Duonebs Q6H PRN - Monitor Chronic back pain - Patient with neuro stimulator still in place. - Continue home meds: - Percocet 5/325 PO 2 tabs Q6H - Flexeril 10 mg PO TID - Gabapentin 400 mg PO TID Anxiety - Patient takes Klonopin 1 mg PO TID at home. Prophylactic measure - SCDs - Protonix 40 mg PO daily. <Kevin Varags M - Last Filed: 01/11/17 15:55> Objective - Vital Signs/Intake and Output Vital Signs (last 24 hours): Temp Pulse Resp BP Pulse Ox 97.5 F L 98 H 18 105/69 100 01/11/17 08:00 01/11/17 08:00 01/11/17 08:00 01/11/17 08:00 01/11/17 08:00 Intake and Output: 01/11/17 01/11/17 06:59 18:59 Intake Total 1540 Balance 1540 - Medications Medications: Current Medications Acetaminophen (Tylenol 325mg Tab) 650 mg PO Q6 PRN PRN Reason: Fever >100.4 F Last Admin: 01/10/17 09:09 Dose: 650 mg Albuterol/Ipratropium (Duoneb 3 Mg/0.5 Mg (3 Ml) Ud) 3 ml INH RQ6 PRN PRN Reason: Shortness of Breath Last Admin: 01/11/17 13:23 Dose: 3 ml Clonazepam (Klonopin) 1 mg PO TID [facility] Last Admin: 01/11/17 13:39 Dose: 1 mg Cyclobenzaprine HCl (Flexeril) 10 mg PO TID [facility] Last Admin: 01/11/17 13:39 Dose: 10 mg Gabapentin (Neurontin) 400 mg PO TID [facility] Last Admin: 01/11/17 13:39 Dose: 400 mg Doxycycline Hyclate 100 mg/ (Sodium Chloride) 100 mls @ 100 mls/hr IVPB Q12H [facility] Last Admin: 01/11/17 06:33 Dose: 100 mls/hr Sodium Chloride (Sodium Chloride 0.9%) 1,000 mls @ 100 mls/hr IV .Q10H [facility] Last Admin: 01/11/17 05:44 Dose: Not Given Nicotine (Nicoderm Cq) 1 patch TD DAILY [facility] Last Admin: 01/11/17 09:43 Dose: 1 patch Ondansetron HCl (Zofran Inj) 4 mg IVP Q6 PRN PRN Reason: Nausea/Vomiting Oxycodone/Acetaminophen (Percocet 5/325 Mg Tab) 2 tab PO Q6H PRN PRN Reason: Pain, severe (8-10) Stop: 01/13/17 14:14 Last Admin: 01/11/17 12:33 Dose: 2 tab Pantoprazole Sodium (Protonix Ec Tab) 40 mg PO DAILY [facility] Last Admin: 01/11/17 09:43 Dose: 40 mg - Labs Labs: 01/11/17 12:06 01/11/17 12:06 Attending/Attestation - Attestation I have personally seen and examined this patient.: Yes I have fully participated in the care of the patient.: Yes I have reviewed all pertinent clinical information, including history, physical exam and plan: Yes Notes (Text): 01/11/17 15:03 Patient was seen and examined at bedside with the resident during the rounds today I agree with the assessment and plan documented above with the following amendments/exception's Patient is a 36-year-old female with the history of chronic back pain who came to the ER because of for chest pain in the right side Upon evaluation patient was found to have right-sided pneumonia We have started the patient on antibiotics Due to multiple medication allergies patient is started on doxycycline and we have also requested ID evaluation We will continue current management and we'll continue patient's pain medication as per her home medication dosages I discussed the plan of care with the resident and agree with the above history and physical and assessment/plan by the resident.
[2017-01-11 14:16] LABS: CHLORIDE 105 mmol/L (98-107); SODIUM 140 mmol/L (132-148)
[2017-01-11 14:17] LABS: POTASSIUM 3.8 mmol/L (3.6-5.2)
[2017-01-11 14:19] LABS: ALB/GLOB RATIO 1.1 (1.0-2.1); AST/SGOT 15 U/L (14-36); BILIRUBIN,TOTAL < 0.1 mg/dL (0.2-1.3); BLOOD UREA NITROGEN 12 mg/dL (7-17); CARBON DIOXIDE 23 mmol/L (22-30); GFR AFRICAN-AMERICAN > 60; TOTAL PROTEIN 5.8 g/dL (6.3-8.3)
[2017-01-11 14:20] LABS: ALKALINE PHOSPHATASE 56 U/L (38-126); ALT/SGPT 13 U/L (9-52); GLUCOSE,RANDOM 104 mg/dL (65-105)
--- NOTE | 2017-01-11 19:08 | CP.PCM.PN ---
Subjective - Date & Time of Evaluation Date of Evaluation: 01/11/17 Time of Evaluation: 07:00 - Subjective Subjective: NO FEVER WBC TRENDING DOWN Objective - Vital Signs/Intake and Output Vital Signs (last 24 hours): Temp Pulse Resp BP Pulse Ox 97.7 F 95 H 20 112/69 98 01/11/17 15:48 01/11/17 15:48 01/11/17 15:48 01/11/17 15:48 01/11/17 15:48 - Medications Medications: Current Medications Acetaminophen (Tylenol 325mg Tab) 650 mg PO Q6 PRN PRN Reason: Fever >100.4 F Last Admin: 01/10/17 09:09 Dose: 650 mg Albuterol/Ipratropium (Duoneb 3 Mg/0.5 Mg (3 Ml) Ud) 3 ml INH RQ6 PRN PRN Reason: Shortness of Breath Last Admin: 01/11/17 13:23 Dose: 3 ml Clonazepam (Klonopin) 1 mg PO TID [facility] Last Admin: 01/11/17 18:31 Dose: 1 mg Cyclobenzaprine HCl (Flexeril) 10 mg PO TID [facility] Last Admin: 01/11/17 18:31 Dose: 10 mg Gabapentin (Neurontin) 400 mg PO TID [facility] Last Admin: 01/11/17 18:28 Dose: 400 mg Doxycycline Hyclate 100 mg/ (Sodium Chloride) 100 mls @ 100 mls/hr IVPB Q12H [facility] Last Admin: 01/11/17 18:33 Dose: 100 mls/hr Sodium Chloride (Sodium Chloride 0.9%) 1,000 mls @ 100 mls/hr IV .Q10H [facility] Last Admin: 01/11/17 16:00 Dose: Not Given Nicotine (Nicoderm Cq) 1 patch TD DAILY [facility] Last Admin: 01/11/17 09:43 Dose: 1 patch Ondansetron HCl (Zofran Inj) 4 mg IVP Q6 PRN PRN Reason: Nausea/Vomiting Oxycodone/Acetaminophen (Percocet 5/325 Mg Tab) 2 tab PO Q6H PRN PRN Reason: Pain, severe (8-10) Stop: 01/13/17 14:14 Last Admin: 01/11/17 18:29 Dose: 2 tab Pantoprazole Sodium (Protonix Ec Tab) 40 mg PO DAILY [facility] Last Admin: 01/11/17 09:43 Dose: 40 mg - Labs Labs: 01/11/17 12:06 01/11/17 12:06 - Constitutional Appears: Non-toxic - Head Exam Head Exam: NORMOCEPHALIC - Eye Exam Eye Exam: absent: Scleral icterus - ENT Exam ENT Exam: Mucous Membranes Dry - Neck Exam Neck Exam: absent: Lymphadenopathy - Respiratory Exam Respiratory Exam: Decreased Breath Sounds, Clear to Ausculation Bilateral - Cardiovascular Exam Cardiovascular Exam: REGULAR RHYTHM, +S1, +S2 - GI/Abdominal Exam GI & Abdominal Exam: Distended, Soft - Rectal Exam Rectal Exam: Deferred Assessment and Plan (1) Chronic back pain Status: Acute
[2017-01-12] MEDS: Oxycodone/Acetaminophen 5/325 mg Tab PO PRN ×4 (00:46→19:26)
[2017-01-12] MEDS: Sodium Chloride 0.9% 1,000 ML IV SCH (01:51)
--- NOTE | 2017-01-12 06:28 | CARD ---
APPROVED REPORT EKG Measurement Heart [id number] <Conclusion> Normal sinus rhythm Normal ECG
--- NOTE | 2017-01-12 06:28 | CARD ---
APPROVED REPORT EKG Measurement Heart [id number] <Conclusion> Normal sinus rhythm Normal ECG
[2017-01-12] MEDS: Pantoprazole 40 mg EC Tab PO SCH (09:53)
--- NOTE | 2017-01-12 14:09 | CP.PCM.PN ---
<CotaDavon thao - Last Filed: 01/12/17 17:41> Subjective - Date & Time of Evaluation Date of Evaluation: 01/12/17 Time of Evaluation: 09:00 - Subjective Subjective: Dr. Vargas service: Patient seen and examined in room. She is sitting up in bed with nasal canula. She reports still having chest pain associated with taking a deep breath in. She says the pain is sharp and stabbing. She is also waking up with night sweats and also in the morning as well. She was able to cough up a small amount of green sputum and put in a container. She is also complaining of sinus congestion which for she says is chronic and is asking to have flonase. She also reports during rounds an inability to gain weight as well as a family history of hyperthyroidism. She is also complaining of not receiving a breathing treatment Objective - Vital Signs/Intake and Output Vital Signs (last 24 hours): Temp Pulse Resp BP Pulse Ox 97.5 F L 75 20 130/87 97 01/12/17 08:06 01/12/17 08:06 01/12/17 08:06 01/12/17 08:06 01/12/17 08:06 Intake and Output: 01/12/17 01/12/17 06:59 18:59 Intake Total 1400 Balance 1400 - Medications Medications: Current Medications Acetaminophen (Tylenol 325mg Tab) 650 mg PO Q6 PRN PRN Reason: Fever >100.4 F Last Admin: 01/10/17 09:09 Dose: 650 mg Albuterol/Ipratropium (Duoneb 3 Mg/0.5 Mg (3 Ml) Ud) 3 ml INH RQ6 [facility] Clonazepam (Klonopin) 1 mg PO TID [facility] Last Admin: 01/12/17 13:31 Dose: 1 mg Cyclobenzaprine HCl (Flexeril) 10 mg PO TID [facility] Last Admin: 01/12/17 13:31 Dose: 10 mg Fluticasone Propionate (Flonase) 2 spr CLARY BID [facility] Gabapentin (Neurontin) 400 mg PO TID [facility] Last Admin: 01/12/17 13:31 Dose: 400 mg Doxycycline Hyclate 100 mg/ (Sodium Chloride) 100 mls @ 100 mls/hr IVPB Q12H [facility] Last Admin: 01/12/17 06:33 Dose: 100 mls/hr Sodium Chloride (Sodium Chloride 0.9%) 1,000 mls @ 100 mls/hr IV .Q10H [facility] Last Admin: 01/12/17 01:51 Dose: 100 mls/hr Nicotine (Nicoderm Cq) 1 patch TD DAILY [facility] Last Admin: 01/12/17 09:53 Dose: 1 patch Ondansetron HCl (Zofran Inj) 4 mg IVP Q6 PRN PRN Reason: Nausea/Vomiting Oxycodone/Acetaminophen (Percocet 5/325 Mg Tab) 2 tab PO Q6H PRN PRN Reason: Pain, severe (8-10) Stop: 01/13/17 14:14 Last Admin: 01/12/17 13:30 Dose: 2 tab Pantoprazole Sodium (Protonix Ec Tab) 40 mg PO DAILY [facility] Last Admin: 01/12/17 09:53 Dose: 40 mg - Labs Labs: 01/11/17 12:06 01/11/17 12:06 - Constitutional Appears: Non-toxic, No Acute Distress - Head Exam Head Exam: ATRAUMATIC, NORMAL INSPECTION, NORMOCEPHALIC - Eye Exam Eye Exam: Normal appearance Pupil Exam: NORMAL ACCOMODATION - Neck Exam Neck Exam: Normal Inspection - Respiratory Exam Respiratory Exam: Decreased Breath Sounds, Rhonchi, Wheezes. absent: Clear to Ausculation Bilateral, Rales - Cardiovascular Exam Cardiovascular Exam: REGULAR RHYTHM, RRR, +S1, +S2. absent: Gallop, Rubs - GI/Abdominal Exam GI & Abdominal Exam: Tenderness, Normal Bowel Sounds. absent: Soft - Extremities Exam Extremities Exam: Normal Inspection. absent: Pedal Edema - Back Exam Back Exam: NORMAL INSPECTION - Neurological Exam Neurological Exam: Alert - Psychiatric Exam Psychiatric exam: Normal Affect, Normal Mood - Skin Skin Exam: Diaphoretic, Dry, Intact, Pallor Assessment and Plan - Assessment and Plan (Free Text) Assessment: Pneumonia 01/12: Continue IV Doxycylne have added flonase for the sinus congestion. Able to obtain sputum culture today, follow that up. Blood culture is negative. Day 4 of IV doxycyline. Reports less pain and saturating well. - Patient with reported allergies to multiple antibiotics. - Chest CT showed right middle lobe pneumonia. - Start Doxy IVPB Q12H - NSS at 100 cc/hr - ID consult - Mangia - help appreciated - Awaiting cultures - Cont IV doxy - Blood cx - no growth after 24 hours Chest pain 01/12: TSH and Free T4 wnl. Previous note: Chest pain very mild today - Patient with sinus tach on EK bpm. - CTA did not show pulmonary embolism. - HR improved 100 bpm. - ISABELLA neg x 3 - Hgb A1C 5.4 - Thyroid panel - WNL - Lipids - wnl - Percocet 5/325 2 tabs q6h Asthma -01/12: Duoneb Q6H schedule, flonase for sinus congestion Previous note: Duonebs Q6H PRN - Monitor Chronic back pain - Patient with neuro stimulator still in place. - Continue home meds: - Percocet 5/325 PO 2 tabs Q6H - Flexeril 10 mg PO TID - Gabapentin 400 mg PO TID Anxiety - Patient takes Klonopin 1 mg PO TID at home. Prophylactic measure - SCDs - Protonix 40 mg PO daily. <Kevin Vargas - Last Filed: 01/12/17 18:21> Objective - Vital Signs/Intake and Output Vital Signs (last 24 hours): Temp Pulse Resp BP Pulse Ox 97.7 F 80 20 110/72 97 01/12/17 16:17 01/12/17 16:17 01/12/17 16:17 01/12/17 16:17 01/12/17 16:17 Intake and Output: 01/12/17 01/12/17 06:59 18:59 Intake Total 1400 350 Balance 1400 350 - Medications Medications: Current Medications Acetaminophen (Tylenol 325mg Tab) 650 mg PO Q6 PRN PRN Reason: Fever >100.4 F Last Admin: 01/10/17 09:09 Dose: 650 mg Albuterol/Ipratropium (Duoneb 3 Mg/0.5 Mg (3 Ml) Ud) 3 ml INH RQ6 [facility] Last Admin: 01/12/17 14:42 Dose: 3 ml Clonazepam (Klonopin) 1 mg PO TID [facility] Last Admin: 01/12/17 17:31 Dose: 1 mg Cyclobenzaprine HCl (Flexeril) 10 mg PO TID [facility] Last Admin: 01/12/17 17:31 Dose: 10 mg Fluticasone Propionate (Flonase) 2 spr CLARY BID [facility] Last Admin: 01/12/17 17:31 Dose: 2 sprays Gabapentin (Neurontin) 400 mg PO TID [facility] Last Admin: 01/12/17 17:31 Dose: 400 mg Doxycycline Hyclate 100 mg/ (Sodium Chloride) 100 mls @ 100 mls/hr IVPB Q12H [facility] Last Admin: 01/12/17 06:33 Dose: 100 mls/hr Sodium Chloride (Sodium Chloride 0.9%) 1,000 mls @ 100 mls/hr IV .Q10H [facility] Last Admin: 01/12/17 01:51 Dose: 100 mls/hr Nicotine (Nicoderm Cq) 1 patch TD DAILY [facility] Last Admin: 01/12/17 09:53 Dose: 1 patch Ondansetron HCl (Zofran Inj) 4 mg IVP Q6 PRN PRN Reason: Nausea/Vomiting Oxycodone/Acetaminophen (Percocet 5/325 Mg Tab) 2 tab PO Q6H PRN PRN Reason: Pain, severe (8-10) Stop: 01/13/17 14:14 Last Admin: 01/12/17 13:30 Dose: 2 tab Pantoprazole Sodium (Protonix Ec Tab) 40 mg PO DAILY [facility] Last Admin: 01/12/17 09:53 Dose: 40 mg - Labs Labs: 01/12/17 17:51 01/11/17 12:06 Attending/Attestation - Attestation I have personally seen and examined this patient.: Yes I have fully participated in the care of the patient.: Yes I have reviewed all pertinent clinical information, including history, physical exam and plan: Yes Notes (Text): 01/12/17 18:19 Patient was seen and examined at bedside with the resident Patient still complains of cough with expectoration We will send the sputum for culture again We will continue current antibiotics Patient started on Flonase because of complains of nasal congestion Patient is on narcotic pain medication because of chronic back pain and she also has a nerve stimulator Discussed the plan of care with the resident and negative with the above history and physical and assessment/plan by the resident
[2017-01-12] MEDS: Albuterol-Ipratrop 3 mg / 0.5 (3 ml) UD INH SCH ×2 (14:42→20:05)
[2017-01-12] MEDS: Fluticasone Nasal 50 mcg/Spray NAS SCH (17:31)
[2017-01-12 18:05] LABS: BASO % 0.3 % (0.0-2.0); EOS # 0.2 K/uL (0.0-0.7); HEMATOCRIT 35.7 % (34.0-47.0); LYMPH # 2.5 K/uL (1.0-4.3); LYMPH % 37.4 % (20.0-40.0); MEAN CELL VOLUME 88.4 fL (81.0-99.0); MEAN CORPUSCULAR HEMOGLOBIN 28.8 pg (27.0-31.0); MEAN CORPUSCULAR HGB CONC 32.6 g/dL (33.0-37.0); MEAN PLATELET VOLUME 10.6 fL (7.2-11.7); MONO # 0.4 K/uL (0.0-0.8); MONO % 5.6 % (0.0-10.0); RED CELL DISTRIBUTION WIDTH 13.6 % (11.5-14.5); WHITE BLOOD COUNT 6.8 K/uL (4.8-10.8)
[2017-01-12 18:24] LABS: CHLORIDE 104 mmol/L (98-107); POTASSIUM 3.6 mmol/L (3.6-5.2); SODIUM 141 mmol/L (132-148)
[2017-01-12 18:26] LABS: ALB/GLOB RATIO 1.1 (1.0-2.1); ALKALINE PHOSPHATASE 59 U/L (38-126); AST/SGOT 17 U/L (14-36); BILIRUBIN,TOTAL 0.1 mg/dL (0.2-1.3); CARBON DIOXIDE 25 mmol/L (22-30); GFR AFRICAN-AMERICAN > 60; TOTAL PROTEIN 5.9 g/dL (6.3-8.3)
[2017-01-12 18:27] LABS: ALT/SGPT 15 U/L (9-52); BLOOD UREA NITROGEN 6 mg/dL (7-17); CALCIUM 8.1 mg/dl (8.6-10.4); GLUCOSE,RANDOM 94 mg/dL (65-105); MAGNESIUM 1.6 mg/dL (1.6-2.3); PHOSPHOROUS 3.5 mg/dL (2.5-4.5)
--- NOTE | 2017-01-13 01:04 | CP.PCM.PN ---
<Isaac Cherry - Last Filed: 01/13/17 00:59> Subjective - Date & Time of Evaluation Date of Evaluation: 01/13/17 Time of Evaluation: 00:59 - Subjective Subjective: PGY-1 note for medicine service Pt seen and examined at bedside. Pt states that she feels better again today. She has less pain overall and her breathing is improved. Denies fevers, chest pain, sob, nausea or vomiting. Objective - Vital Signs/Intake and Output Vital Signs (last 24 hours): Temp Pulse Resp BP Pulse Ox 97.9 F 102 H 20 121/75 98 01/12/17 23:26 01/13/17 00:40 01/12/17 23:26 01/12/17 23:26 01/12/17 23:26 Intake and Output: 01/12/17 01/13/17 18:59 06:59 Intake Total 350 Balance 350 - Medications Medications: Current Medications Acetaminophen (Tylenol 325mg Tab) 650 mg PO Q6 PRN PRN Reason: Fever >100.4 F Last Admin: 01/10/17 09:09 Dose: 650 mg Albuterol/Ipratropium (Duoneb 3 Mg/0.5 Mg (3 Ml) Ud) 3 ml INH RQ6 [facility] Last Admin: 01/12/17 20:05 Dose: 3 ml Clonazepam (Klonopin) 1 mg PO TID [facility] Last Admin: 01/12/17 17:31 Dose: 1 mg Cyclobenzaprine HCl (Flexeril) 10 mg PO TID [facility] Last Admin: 01/12/17 17:31 Dose: 10 mg Fluticasone Propionate (Flonase) 2 spr CLARY BID [facility] Last Admin: 01/12/17 17:31 Dose: 2 sprays Gabapentin (Neurontin) 400 mg PO TID [facility] Last Admin: 01/12/17 17:31 Dose: 400 mg Doxycycline Hyclate 100 mg/ (Sodium Chloride) 100 mls @ 100 mls/hr IVPB Q12H [facility] Last Admin: 01/12/17 19:25 Dose: 100 mls/hr Nicotine (Nicoderm Cq) 1 patch TD DAILY [facility] Last Admin: 01/12/17 09:53 Dose: 1 patch Ondansetron HCl (Zofran Inj) 4 mg IVP Q6 PRN PRN Reason: Nausea/Vomiting Oxycodone/Acetaminophen (Percocet 5/325 Mg Tab) 2 tab PO Q6H PRN PRN Reason: Pain, severe (8-10) Stop: 01/13/17 14:14 Last Admin: 01/12/17 19:26 Dose: 2 tab Pantoprazole Sodium (Protonix Ec Tab) 40 mg PO DAILY [facility] Last Admin: 01/12/17 09:53 Dose: 40 mg - Labs Labs: 01/12/17 17:51 01/12/17 17:51 - Constitutional Appears: Non-toxic, No Acute Distress - Head Exam Head Exam: ATRAUMATIC, NORMOCEPHALIC - Respiratory Exam Respiratory Exam: Clear to Ausculation Bilateral, NORMAL BREATHING PATTERN - Cardiovascular Exam Cardiovascular Exam: +S1, +S2 - GI/Abdominal Exam GI & Abdominal Exam: Soft, Normal Bowel Sounds - Neurological Exam Neurological Exam: Alert, Awake - Skin Skin Exam: Dry, Warm Assessment and Plan - Assessment and Plan (Free Text) Assessment: Pneumonia Reports less pain and saturating well. - Patient with reported allergies to multiple antibiotics. - Chest CT showed right middle lobe pneumonia. - Doxy IVPB Q12H (01/09) - Added flonase for sinus congestion - NSS at 100 cc/hr - ID consult - Mangia - help appreciated - Awaiting cultures - Cont IV doxy - Blood cx - no growth after 3 days - Sputum culture - pending Chest pain Chest pain very mild today - Patient with sinus tach on EK bpm. - CTA did not show pulmonary embolism. - HR improved 100 bpm. - ISABELLA neg x 3 - Hgb A1C 5.4 - Thyroid panel - WNL - Lipids - wnl - Percocet 5/325 2 tabs q6h Asthma - Duonebs Q6H [facility] - Flonase for sinus congestion - Monitor Chronic back pain - Patient with neuro stimulator still in place. - Continue home meds: - Percocet 5/325 PO 2 tabs Q6H - Flexeril 10 mg PO TID - Gabapentin 400 mg PO TID Anxiety - Patient takes Klonopin 1 mg PO TID at home. Prophylactic measure - SCDs - Protonix 40 mg PO daily. <Kevin Vargas - Last Filed: 01/13/17 14:16> Objective - Vital Signs/Intake and Output Vital Signs (last 24 hours): Temp Pulse Resp BP Pulse Ox 97.9 F 102 H 20 121/75 98 01/12/17 23:26 01/13/17 00:40 01/12/17 23:26 01/12/17 23:26 01/12/17 23:26 - Medications Medications: Current Medications Acetaminophen (Tylenol 325mg Tab) 650 mg PO Q6 PRN PRN Reason: Fever >100.4 F Last Admin: 01/10/17 09:09 Dose: 650 mg Albuterol/Ipratropium (Duoneb 3 Mg/0.5 Mg (3 Ml) Ud) 3 ml INH RQ6 [facility] Last Admin: 01/13/17 13:32 Dose: 3 ml Clonazepam (Klonopin) 1 mg PO TID [facility] Last Admin: 01/13/17 10:13 Dose: 1 mg Cyclobenzaprine HCl (Flexeril) 10 mg PO TID [facility] Last Admin: 01/13/17 10:12 Dose: 10 mg Fluticasone Propionate (Flonase) 2 spr CLARY BID [facility] Last Admin: 01/13/17 10:13 Dose: 2 sprays Gabapentin (Neurontin) 400 mg PO TID [facility] Last Admin: 01/13/17 10:12 Dose: 400 mg Doxycycline Hyclate 100 mg/ (Sodium Chloride) 100 mls @ 100 mls/hr IVPB Q12H [facility] Last Admin: 01/13/17 06:23 Dose: 100 mls/hr Nicotine (Nicoderm Cq) 1 patch TD DAILY [facility] Last Admin: 01/13/17 10:10 Dose: 1 patch Ondansetron HCl (Zofran Inj) 4 mg IVP Q6 PRN PRN Reason: Nausea/Vomiting Oxycodone/Acetaminophen (Percocet 5/325 Mg Tab) 2 tab PO Q6H PRN PRN Reason: Pain, severe (8-10) Stop: 01/13/17 14:14 Last Admin: 01/13/17 11:39 Dose: 2 tab Pantoprazole Sodium (Protonix Ec Tab) 40 mg PO DAILY [facility] Last Admin: 01/13/17 10:13 Dose: 40 mg - Labs Labs: 01/13/17 07:15 01/13/17 07:15 Attending/Attestation - Attestation I have personally seen and examined this patient.: Yes I have fully participated in the care of the patient.: Yes I have reviewed all pertinent clinical information, including history, physical exam and plan: Yes Notes (Text): 01/13/17 14:14 Patient was seen and examined at bedside with the resident Patient states his cough and expectoration is improved slightly today He also stated that right-sided chest pain is improved although she mixing machine tender to palpation We will continue antibiotics . In view of patient's multiple antibiotic allergies we will continue doxycycline. We are awaiting sensitivities of the sputum culture. Patient also complained of mild diarrhea. We will start the patient on probiotic. I discussed the plan of care with the resident I agree with the above history and physical and assessment/plan with the necessary amendments stated above.
[2017-01-13] MEDS: Albuterol-Ipratrop 3 mg / 0.5 (3 ml) UD INH SCH ×4 (01:30→20:22)
[2017-01-13] MEDS: Oxycodone/Acetaminophen 5/325 mg Tab PO PRN ×3 (04:55→19:13)
[2017-01-13] MEDS: Sodium Chloride 0.9% 1,000 ML IV SCH (04:58)
[2017-01-13 07:44] LABS: BASO % 0.4 % (0.0-2.0); EOS # 0.2 K/uL (0.0-0.7); EOS % 2.7 % (0.0-4.0); HEMATOCRIT 33.4 % (34.0-47.0); LYMPH # 1.9 K/uL (1.0-4.3); LYMPH % 28.7 % (20.0-40.0); MEAN CELL VOLUME 88.3 fL (81.0-99.0); MEAN CORPUSCULAR HEMOGLOBIN 29.2 pg (27.0-31.0); MEAN CORPUSCULAR HGB CONC 33.1 g/dL (33.0-37.0); MEAN PLATELET VOLUME 10.5 fL (7.2-11.7); MONO # 0.4 K/uL (0.0-0.8); MONO % 5.5 % (0.0-10.0); RED CELL DISTRIBUTION WIDTH 13.4 % (11.5-14.5); WHITE BLOOD COUNT 6.7 K/uL (4.8-10.8)
[2017-01-13 07:51] LABS: CHLORIDE 103 mmol/L (98-107); POTASSIUM 3.6 mmol/L (3.6-5.2); SODIUM 142 mmol/L (132-148)
[2017-01-13 07:53] LABS: BILIRUBIN,TOTAL < 0.1 mg/dL (0.2-1.3); CARBON DIOXIDE 26 mmol/L (22-30); GFR AFRICAN-AMERICAN > 60
[2017-01-13 07:54] LABS: ALB/GLOB RATIO 1.2 (1.0-2.1); ALKALINE PHOSPHATASE 62 U/L (38-126); ALT/SGPT 47 U/L (9-52); AST/SGOT 40 U/L (14-36); BLOOD UREA NITROGEN 7 mg/dL (7-17); CALCIUM 7.8 mg/dl (8.6-10.4); GLUCOSE,RANDOM 78 mg/dL (65-105); MAGNESIUM 1.6 mg/dL (1.6-2.3); TOTAL PROTEIN 5.2 g/dL (6.3-8.3)
[2017-01-13] MEDS: Pantoprazole 40 mg EC Tab PO SCH (10:13)
[2017-01-13] MEDS: Fluticasone Nasal 50 mcg/Spray NAS SCH ×2 (10:13→18:23)
--- NOTE | 2017-01-13 15:44 | CP.PCM.PN ---
Subjective - Date & Time of Evaluation Date of Evaluation: 01/13/17 Time of Evaluation: 09:00 - Subjective Subjective: no fever or leukocytosis less cough and sob cough still productive for follow up cxr Objective - Vital Signs/Intake and Output Vital Signs (last 24 hours): Temp Pulse Resp BP Pulse Ox 97.9 F 102 H 20 121/75 98 01/12/17 23:26 01/13/17 00:40 01/12/17 23:26 01/12/17 23:26 01/12/17 23:26 - Medications Medications: Current Medications Acetaminophen (Tylenol 325mg Tab) 650 mg PO Q6 PRN PRN Reason: Fever >100.4 F Last Admin: 01/10/17 09:09 Dose: 650 mg Albuterol/Ipratropium (Duoneb 3 Mg/0.5 Mg (3 Ml) Ud) 3 ml INH RQ6 [facility] Last Admin: 01/13/17 13:32 Dose: 3 ml Clonazepam (Klonopin) 1 mg PO TID [facility] Last Admin: 01/13/17 10:13 Dose: 1 mg Cyclobenzaprine HCl (Flexeril) 10 mg PO TID [facility] Last Admin: 01/13/17 10:12 Dose: 10 mg Fluticasone Propionate (Flonase) 2 spr CLARY BID [facility] Last Admin: 01/13/17 10:13 Dose: 2 sprays Gabapentin (Neurontin) 400 mg PO TID [facility] Last Admin: 01/13/17 10:12 Dose: 400 mg Doxycycline Hyclate 100 mg/ (Sodium Chloride) 100 mls @ 100 mls/hr IVPB Q12H [facility] Last Admin: 01/13/17 06:23 Dose: 100 mls/hr Nicotine (Nicoderm Cq) 1 patch TD DAILY [facility] Last Admin: 01/13/17 10:10 Dose: 1 patch Ondansetron HCl (Zofran Inj) 4 mg IVP Q6 PRN PRN Reason: Nausea/Vomiting Pantoprazole Sodium (Protonix Ec Tab) 40 mg PO DAILY [facility] Last Admin: 01/13/17 10:13 Dose: 40 mg Saccharomyces Boulardii (Florastor) 250 mg PO BID [facility] - Labs Labs: 01/13/17 07:15 01/13/17 07:15 - Constitutional Appears: Non-toxic, Cachectic, Chronically Ill - Head Exam Head Exam: NORMOCEPHALIC - Eye Exam Eye Exam: PERRL. absent: Scleral icterus - ENT Exam ENT Exam: Mucous Membranes Dry - Neck Exam Neck Exam: absent: Lymphadenopathy, Thyromegaly - Respiratory Exam Respiratory Exam: Decreased Breath Sounds, Rhonchi - Cardiovascular Exam Cardiovascular Exam: REGULAR RHYTHM, +S1, +S2 - GI/Abdominal Exam GI & Abdominal Exam: Distended, Soft. absent: Tenderness - Rectal Exam Rectal Exam: Deferred - Exam Exam: NORMAL INSPECTION - Extremities Exam Extremities Exam: absent: Pedal Edema - Back Exam Back Exam: absent: CVA tenderness (L), CVA tenderness (R) Assessment and Plan (1) Chronic back pain Status: Acute (2) Pneumonia Status: Acute
[2017-01-13] MEDS: Saccharomyces Boulardi 250 mg Cap PO SCH (18:25)
[2017-01-14] MEDS: Oxycodone/Acetaminophen 5/325 mg Tab PO PRN ×4 (01:14→23:46)
[2017-01-14] MEDS: Albuterol-Ipratrop 3 mg / 0.5 (3 ml) UD INH SCH ×4 (01:32→21:00)
[2017-01-14] MEDS: Saccharomyces Boulardi 250 mg Cap PO SCH ×2 (09:52→17:42)
[2017-01-14] MEDS: Pantoprazole 40 mg EC Tab PO SCH (09:52)
[2017-01-14] MEDS: Fluticasone Nasal 50 mcg/Spray NAS SCH (09:53)
--- NOTE | 2017-01-14 12:45 | RAD ---
Chest x-ray two views History: Shortness of breath. Pneumonia. Comparison: 01/09/2017. Findings: Worsening increased markings at both lung bases ; left greater than right which may represent worsening infiltrate and or atelectasis. Interval blunting of the bilateral costophrenic angles which may represent interval pleural effusions. Spinal stimulator device in place. Biapical pleural thickening with upper lobe granulomatous changes. Heart size within normal limits. Impression: Worsening increased markings at both lung bases ; left greater than right which may represent worsening infiltrate and or atelectasis. Interval blunting of the bilateral costophrenic angles which may represent interval pleural effusions.
--- NOTE | 2017-01-14 16:07 | CP.PCM.DIS ---
<Isaac Cherry - Last Filed: 01/15/17 10:21> Provider - Provider Date of Admission: 01/09/17 22:50 Attending physician: Kevin Vargas MD Primary care physician: Dr. More Consults: ID: [id number] Time Spent in preparation of Discharge (in minutes): 31 Hospital Course - Lab Results Lab Results: Micro Results 01/10/17 Unknown Sputum Gram Stain - Final 01/10/17 Unknown Sputum Sputum Culture - Final Serratia Marcescens Most Recent Lab Values WBC 6.7 K/uL (4.8-10.8) 01/13/17 07:15 RBC 3.78 Mil/uL (3.80-5.20) L 01/13/17 07:15 Hgb 11.0 g/dL (11.0-16.0) 01/13/17 07:15 Hct 33.4 % (34.0-47.0) L 01/13/17 07:15 MCV 88.3 fL (81.0-99.0) 01/13/17 07:15 MCH 29.2 pg (27.0-31.0) 01/13/17 07:15 MCHC 33.1 g/dL (33.0-37.0) 01/13/17 07:15 RDW 13.4 % (11.5-14.5) 01/13/17 07:15 Plt Count 139 K/uL (130-400) 01/13/17 07:15 MPV 10.5 fL (7.2-11.7) 01/13/17 07:15 Neut % (Auto) 62.7 % (50.0-75.0) 01/13/17 07:15 Lymph % (Auto) 28.7 % (20.0-40.0) 01/13/17 07:15 Bracken % (Auto) 5.5 % (0.0-10.0) 01/13/17 07:15 Eos % (Auto) 2.7 % (0.0-4.0) 01/13/17 07:15 Baso % (Auto) 0.4 % (0.0-2.0) 01/13/17 07:15 Neut # 4.2 K/uL (1.8-7.0) 01/13/17 07:15 Lymph # 1.9 K/uL (1.0-4.3) 01/13/17 07:15 Bracken # 0.4 K/uL (0.0-0.8) 01/13/17 07:15 Eos # 0.2 K/uL (0.0-0.7) 01/13/17 07:15 Baso # 0.0 K/uL (0.0-0.2) 01/13/17 07:15 Neutrophils % (Manual) 83 % (50-75) H 01/09/17 18:44 Band Neutrophils % 7 % (0-2) H 01/09/17 18:44 Lymphocytes % (Manual) 6 % (20-40) L 01/09/17 18:44 Monocytes % (Manual) 4 % (0-10) 01/09/17 18:44 Differential Comment 01/11/17 12:06 Platelet Estimate Normal (NORMAL) 01/09/17 18:44 D-Dimer, Quantitative < 200 ng/mlDDU (0-243) 01/09/17 18:44 Sodium 142 mmol/L (132-148) 01/13/17 07:15 Potassium 3.6 mmol/L (3.6-5.2) 01/13/17 07:15 Chloride 103 mmol/L (98-107) 01/13/17 07:15 Carbon Dioxide 26 mmol/L (22-30) 01/13/17 07:15 Anion Gap 16 (10-20) 01/13/17 07:15 BUN 7 mg/dL (7-17) 01/13/17 07:15 Creatinine 0.4 MG/DL (0.7-1.2) L 01/13/17 07:15 Est GFR ( Amer) > 60 01/13/17 07:15 Est GFR (Non-Af Amer) > 60 01/13/17 07:15 Random Glucose 78 mg/dL (65-105) 01/13/17 07:15 Hemoglobin A1c 5.4 % (4.2-6.5) 01/10/17 08:42 Calcium 7.8 mg/dl (8.6-10.4) L 01/13/17 07:15 Phosphorus 4.0 mg/dL (2.5-4.5) 01/13/17 07:15 Magnesium 1.6 mg/dL (1.6-2.3) 01/13/17 07:15 Total Bilirubin < 0.1 mg/dL (0.2-1.3) L 01/13/17 07:15 AST 40 U/L (14-36) H D 01/13/17 07:15 ALT 47 U/L (9-52) 01/13/17 07:15 Alkaline Phosphatase 62 U/L (38-126) 01/13/17 07:15 Total Creatine Kinase < 20 U/L (30-135) L 01/10/17 19:52 CK-MB (Mass) < 0.22 ng/mL (0.0-3.38) 01/10/17 19:52 Troponin I, Quant < 0.0120 ng/mL (0.00-0.120) 01/10/17 19:52 Total Protein 5.2 g/dL (6.3-8.3) L 01/13/17 07:15 Albumin 2.8 g/dL (3.5-5.0) L 01/13/17 07:15 Globulin 2.4 gm/dL (2.2-3.9) 01/13/17 07:15 Albumin/Globulin Ratio 1.2 (1.0-2.1) 01/13/17 07:15 Triglycerides 57 mg/dL (0-149) 01/10/17 08:28 Cholesterol 109 mg/dL (0-199) 01/10/17 08:28 LDL Cholesterol Direct 54 mg/dL (0-129) 01/10/17 08:28 HDL Cholesterol 34 mg/dL (30-70) 01/10/17 08:28 Free T4 1.00 ng/dL (0.78-2.19) 01/12/17 12:01 TSH 3rd Generation 0.94 mIU/L (0.46-4.68) 01/12/17 12:01 Urine Color Yellow (YELLOW) 01/10/17 08:42 Urine Clarity Clear (Clear) 01/10/17 08:42 Urine pH 7.0 (5.0-8.0) 01/10/17 08:42 Ur Specific [place] 1.015 (1.003-1.030) 01/10/17 08:42 Urine Protein Negative mg/dL (NEGATIVE) 01/10/17 08:42 Urine Glucose (UA) Normal mg/dL (Normal) 01/10/17 08:42 Urine Ketones Negative mg/dL (NEGATIVE) 01/10/17 08:42 Urine Blood Negative (NEGATIVE) 01/10/17 08:42 Urine Nitrate Negative (NEGATIVE) 01/10/17 08:42 Urine Bilirubin Negative (NEGATIVE) 01/10/17 08:42 Urine Urobilinogen Normal mg/dL (0.2-1.0) 01/10/17 08:42 Ur Leukocyte Esterase Neg Reji/uL (Negative) 01/10/17 08:42 Urine WBC (Auto) 1 /hpf (0-5) 01/10/17 08:42 Urine RBC (Auto) 1 /hpf (0-3) 01/10/17 08:42 Ur Squamous Epith Cells 5 /hpf (0-5) 01/10/17 08:42 Urine Opiates Screen Positive (NEGATIVE) 01/10/17 08:53 Urine Methadone Screen Negative (NEGATIVE) 01/10/17 08:53 Ur Barbiturates Screen Negative (NEGATIVE) 01/10/17 08:53 Ur Phencyclidine Scrn Negative (NEGATIVE) 01/10/17 08:53 Ur Amphetamines Screen Negative (NEGATIVE) 01/10/17 08:53 U Benzodiazepines Scrn Negative (NEGATIVE) 01/10/17 08:53 U Oth Cocaine Metabols Negative (NEGATIVE) 01/10/17 08:53 U Cannabinoids Screen Negative (NEGATIVE) 01/10/17 08:53 Influenza Typ A,B (EIA) Negative for flu a/b (NEGATIVE) 01/09/17 18:02 - Hospital Course Hospital Course: On hospital admission 36 year old female with PMHx of asthma, chronic back pain presents with 1 day history of chest pain and cough. Patient reports chest pain began this morning and has never happened before. Chest pain is right sided, non radiating, persistent and rated at a 10/10. Nothing makes the pain better or worse. She did not take any medications to help the pain or cough. Admits to measured fevers of up to 104 at home with associated chills. She also complaints of body aches and SOB. She reports some cough with green, non bloody sputum since the morning of admission. Denies palpitations, diarrhea, abdominal pain, vomiting, constipation. She is experiencing some nausea. Denies sick contacts or recent travel. She admits to generalized body aches and back pain. However patient has a history of chronic back pain and surgical placement of "spine machine". She denies leg pain, leg swelling and does not take any form of contraceptive. Admits to smoking 3 cigarets per day. On hospital course Pt was admitted with a RLL pneumonia seen on X-ray. A chest CT was obtained as well, to r/o any PE, which showed right middle lobe pneumonia and no evidence of pulmonary embolus She was placed on Doxycycline due to extensive antibiotic allergies. ID was consulted and agreed with treatment plan. Pt was monitored with daily labs and continued to improve symptomatically. She was discharged in stable condition with prescriptions for the following medications: Doxycycline Hyclate [Doryx] 100 mg PO Q12H #18 cap Albuterol HFA [Ventolin HFA 90 mcg/actuation (8 g)] 2 puff IH PRN PRN #1 inhaler PRN Reason: Allergy Symptoms Pt instructed to take antibiotics to completion and to follow up with her primary care physician. Diagnoses RLL pneumonia Chronic back pain Chest pain - Date & Time of H&P Date of H&P: 01/09/17 Time of H&P: 22:52 Discharge Exam - Head Exam Head Exam: NORMOCEPHALIC - Eye Exam Eye Exam: Normal appearance Pupil Exam: PERRL - Respiratory Exam Respiratory Exam: Clear to PA & Lateral, NORMAL BREATHING PATTERN, UNREMARKABLE - Cardiovascular Exam Cardiovascular Exam: +S1, +S2 - GI/Abdominal Exam GI & Abdominal Exam: Normal Bowel Sounds, Unremarkable - Neurological Exam Neurological exam: Alert, Oriented x3 - Skin Skin Exam: Dry, Warm Discharge Plan - Discharge Medications Prescriptions: Doxycycline Hyclate [Doryx] 100 mg PO Q12H #18 cap Albuterol HFA [Ventolin HFA 90 mcg/actuation (8 g)] 2 puff IH PRN PRN #1 inhaler PRN Reason: Allergy Symptoms - Follow Up Plan Condition: SERIOUS Disposition: HOME/ ROUTINE Instructions: Doxycycline (By mouth), Albuterol (By breathing), How to Use an Incentive Spirometer (GEN), Back Pain (GEN), Anxiety (GEN), Pneumonia (GEN) Additional Instructions: Fill prescription for doxycycline and take as directed until completion. You should also follow up with your primary care physician within the next week. If symptoms return or persist please return to the emergency room. <Peewee Louis - Last Filed: 02/13/17 10:05> Provider - Provider Date of Admission: 01/09/17 22:50 Attending physician: Kevin Vargas MD Hospital Course - Lab Results Lab Results: Micro Results 01/10/17 Unknown Sputum Gram Stain - Final 01/10/17 Unknown Sputum Sputum Culture - Final Serratia Marcescens Most Recent Lab Values WBC 6.7 K/uL (4.8-10.8) 01/13/17 07:15 RBC 3.78 Mil/uL (3.80-5.20) L 01/13/17 07:15 Hgb 11.0 g/dL (11.0-16.0) 01/13/17 07:15 Hct 33.4 % (34.0-47.0) L 01/13/17 07:15 MCV 88.3 fL (81.0-99.0) 01/13/17 07:15 MCH 29.2 pg (27.0-31.0) 01/13/17 07:15 MCHC 33.1 g/dL (33.0-37.0) 01/13/17 07:15 RDW 13.4 % (11.5-14.5) 01/13/17 07:15 Plt Count 139 K/uL (130-400) 01/13/17 07:15 MPV 10.5 fL (7.2-11.7) 01/13/17 07:15 Neut % (Auto) 62.7 % (50.0-75.0) 01/13/17 07:15 Lymph % (Auto) 28.7 % (20.0-40.0) 01/13/17 07:15 Bracken % (Auto) 5.5 % (0.0-10.0) 01/13/17 07:15 Eos % (Auto) 2.7 % (0.0-4.0) 01/13/17 07:15 Baso % (Auto) 0.4 % (0.0-2.0) 01/13/17 07:15 Neut # 4.2 K/uL (1.8-7.0) 01/13/17 07:15 Lymph # 1.9 K/uL (1.0-4.3) 01/13/17 07:15 Bracken # 0.4 K/uL (0.0-0.8) 01/13/17 07:15 Eos # 0.2 K/uL (0.0-0.7) 01/13/17 07:15 Baso # 0.0 K/uL (0.0-0.2) 01/13/17 07:15 Neutrophils % (Manual) 83 % (50-75) H 01/09/17 18:44 Band Neutrophils % 7 % (0-2) H 01/09/17 18:44 Lymphocytes % (Manual) 6 % (20-40) L 01/09/17 18:44 Monocytes % (Manual) 4 % (0-10) 01/09/17 18:44 Differential Comment 01/11/17 12:06 Platelet Estimate Normal (NORMAL) 01/09/17 18:44 D-Dimer, Quantitative < 200 ng/mlDDU (0-243) 01/09/17 18:44 Sodium 142 mmol/L (132-148) 01/13/17 07:15 Potassium 3.6 mmol/L (3.6-5.2) 01/13/17 07:15 Chloride 103 mmol/L (98-107) 01/13/17 07:15 Carbon Dioxide 26 mmol/L (22-30) 01/13/17 07:15 Anion Gap 16 (10-20) 01/13/17 07:15 BUN 7 mg/dL (7-17) 01/13/17 07:15 Creatinine 0.4 MG/DL (0.7-1.2) L 01/13/17 07:15 Est GFR ( Amer) > 60 01/13/17 07:15 Est GFR (Non-Af Amer) > 60 01/13/17 07:15 Random Glucose 78 mg/dL (65-105) 01/13/17 07:15 Hemoglobin A1c 5.4 % (4.2-6.5) 01/10/17 08:42 Calcium 7.8 mg/dl (8.6-10.4) L 01/13/17 07:15 Phosphorus 4.0 mg/dL (2.5-4.5) 01/13/17 07:15 Magnesium 1.6 mg/dL (1.6-2.3) 01/13/17 07:15 Total Bilirubin < 0.1 mg/dL (0.2-1.3) L 01/13/17 07:15 AST 40 U/L (14-36) H D 01/13/17 07:15 ALT 47 U/L (9-52) 01/13/17 07:15 Alkaline Phosphatase 62 U/L (38-126) 01/13/17 07:15 Total Creatine Kinase < 20 U/L (30-135) L 01/10/17 19:52 CK-MB (Mass) < 0.22 ng/mL (0.0-3.38) 01/10/17 19:52 Troponin I, Quant < 0.0120 ng/mL (0.00-0.120) 01/10/17 19:52 Total Protein 5.2 g/dL (6.3-8.3) L 01/13/17 07:15 Albumin 2.8 g/dL (3.5-5.0) L 01/13/17 07:15 Globulin 2.4 gm/dL (2.2-3.9) 01/13/17 07:15 Albumin/Globulin Ratio 1.2 (1.0-2.1) 01/13/17 07:15 Triglycerides 57 mg/dL (0-149) 01/10/17 08:28 Cholesterol 109 mg/dL (0-199) 01/10/17 08:28 LDL Cholesterol Direct 54 mg/dL (0-129) 01/10/17 08:28 HDL Cholesterol 34 mg/dL (30-70) 01/10/17 08:28 Free T4 1.00 ng/dL (0.78-2.19) 01/12/17 12:01 TSH 3rd Generation 0.94 mIU/L (0.46-4.68) 01/12/17 12:01 Urine Color Yellow (YELLOW) 01/10/17 08:42 Urine Clarity Clear (Clear) 01/10/17 08:42 Urine pH 7.0 (5.0-8.0) 01/10/17 08:42 Ur Specific [place] 1.015 (1.003-1.030) 01/10/17 08:42 Urine Protein Negative mg/dL (NEGATIVE) 01/10/17 08:42 Urine Glucose (UA) Normal mg/dL (Normal) 01/10/17 08:42 Urine Ketones Negative mg/dL (NEGATIVE) 01/10/17 08:42 Urine Blood Negative (NEGATIVE) 01/10/17 08:42 Urine Nitrate Negative (NEGATIVE) 01/10/17 08:42 Urine Bilirubin Negative (NEGATIVE) 01/10/17 08:42 Urine Urobilinogen Normal mg/dL (0.2-1.0) 01/10/17 08:42 Ur Leukocyte Esterase Neg Reji/uL (Negative) 01/10/17 08:42 Urine WBC (Auto) 1 /hpf (0-5) 01/10/17 08:42 Urine RBC (Auto) 1 /hpf (0-3) 01/10/17 08:42 Ur Squamous Epith Cells 5 /hpf (0-5) 01/10/17 08:42 Urine Opiates Screen Positive (NEGATIVE) 01/10/17 08:53 Urine Methadone Screen Negative (NEGATIVE) 01/10/17 08:53 Ur Barbiturates Screen Negative (NEGATIVE) 01/10/17 08:53 Ur Phencyclidine Scrn Negative (NEGATIVE) 01/10/17 08:53 Ur Amphetamines Screen Negative (NEGATIVE) 01/10/17 08:53 U Benzodiazepines Scrn Negative (NEGATIVE) 01/10/17 08:53 U Oth Cocaine Metabols Negative (NEGATIVE) 01/10/17 08:53 U Cannabinoids Screen Negative (NEGATIVE) 01/10/17 08:53 Influenza Typ A,B (EIA) Negative for flu a/b (NEGATIVE) 01/09/17 18:02 Attending/Attestation - Attestation I have personally seen and examined this patient.: Yes I have fully participated in the care of the patient.: Yes I have reviewed all pertinent clinical information, including history, physical exam and plan: Yes Notes (Text): Patient seen and examined with the resident. Agree with the resident's evaluation, assessment and plan. Primary diagnosis pneumonia discharged on antibiotics discharge date was 01/15
--- NOTE | 2017-01-14 17:18 | CP.PCM.PN ---
<Isaac Cherry - Last Filed: 01/14/17 17:15> Subjective - Date & Time of Evaluation Date of Evaluation: 01/14/17 Time of Evaluation: 17:15 - Subjective Subjective: PGY1 note for medicine service Pt seen and examined at bedside. Pt states that she feels better today but still weaker than baseline. Denies fevers, chills, chest pain, nausea or vomiting. Objective - Vital Signs/Intake and Output Vital Signs (last 24 hours): Temp Pulse Resp BP Pulse Ox 98 F 94 H 20 103/64 97 01/14/17 15:53 01/14/17 17:03 01/14/17 15:53 01/14/17 15:53 01/14/17 15:53 Intake and Output: 01/14/17 01/14/17 06:59 18:59 Intake Total 450 Balance 450 - Medications Medications: Current Medications Acetaminophen (Tylenol 325mg Tab) 650 mg PO Q6 PRN PRN Reason: Fever >100.4 F Last Admin: 01/10/17 09:09 Dose: 650 mg Albuterol/Ipratropium (Duoneb 3 Mg/0.5 Mg (3 Ml) Ud) 3 ml INH RQ6 [facility] Last Admin: 01/14/17 14:54 Dose: 3 ml Clonazepam (Klonopin) 1 mg PO TID [facility] Last Admin: 01/14/17 14:05 Dose: 1 mg Cyclobenzaprine HCl (Flexeril) 10 mg PO TID [facility] Last Admin: 01/14/17 14:05 Dose: 10 mg Fluticasone Propionate (Flonase) 2 spr CLARY BID [facility] Last Admin: 01/14/17 09:53 Dose: 2 sprays Gabapentin (Neurontin) 400 mg PO TID [facility] Last Admin: 01/14/17 14:05 Dose: 400 mg Doxycycline Hyclate 100 mg/ (Sodium Chloride) 100 mls @ 100 mls/hr IVPB Q12H [facility] Last Admin: 01/14/17 06:32 Dose: 100 mls/hr Nicotine (Nicoderm Cq) 1 patch TD DAILY [facility] Last Admin: 01/14/17 09:52 Dose: 1 patch Ondansetron HCl (Zofran Inj) 4 mg IVP Q6 PRN PRN Reason: Nausea/Vomiting Oxycodone/Acetaminophen (Percocet 5/325 Mg Tab) 2 tab PO Q6H PRN PRN Reason: Pain, Mild (1-3) Stop: 01/16/17 19:05 Last Admin: 01/14/17 16:38 Dose: 2 tab Pantoprazole Sodium (Protonix Ec Tab) 40 mg PO DAILY [facility] Last Admin: 01/14/17 09:52 Dose: 40 mg Saccharomyces Boulardii (Florastor) 250 mg PO BID [facility] Last Admin: 01/14/17 09:52 Dose: 250 mg - Labs Labs: 01/13/17 07:15 01/13/17 07:15 - Constitutional Appears: Well, Non-toxic - Head Exam Head Exam: ATRAUMATIC, NORMOCEPHALIC - ENT Exam ENT Exam: Mucous Membranes Moist - Respiratory Exam Respiratory Exam: Decreased Breath Sounds, Clear to Ausculation Bilateral, NORMAL BREATHING PATTERN. absent: Rales, Rhonchi - Cardiovascular Exam Cardiovascular Exam: +S1, +S2 - GI/Abdominal Exam GI & Abdominal Exam: Soft, Normal Bowel Sounds - Neurological Exam Neurological Exam: Alert, Awake - Skin Skin Exam: Dry, Warm Assessment and Plan - Assessment and Plan (Free Text) Assessment: Pneumonia Reports less pain and saturating well. - Patient with reported allergies to multiple antibiotics. - Chest CT showed right middle lobe pneumonia. - Doxy IVPB Q12H (01/09) - Added flonase for sinus congestion - NSS at 100 cc/hr - ID consult - Mangia - help appreciated - Awaiting cultures - Cont IV doxy - Blood cx - no growth after 3 days - Sputum culture - Serratia marcescens Chest pain Chest pain very mild today - Patient with sinus tach on EK bpm. - CTA did not show pulmonary embolism. - HR improved 100 bpm. - ISABELLA neg x 3 - Hgb A1C 5.4 - Thyroid panel - WNL - Lipids - wnl - Percocet 5/325 2 tabs q6h Asthma - Duonebs Q6H Kala - Flonase for sinus congestion - Monitor Chronic back pain - Patient with neuro stimulator still in place. - Continue home meds: - Percocet 5/325 PO 2 tabs Q6H - Flexeril 10 mg PO TID - Gabapentin 400 mg PO TID Anxiety - Patient takes Klonopin 1 mg PO TID at home. Prophylactic measure - SCDs - Protonix 40 mg PO daily. <Peewee Louis - Last Filed: 02/13/17 10:04> Objective - Vital Signs/Intake and Output Vital Signs (last 24 hours): Temp Pulse Resp BP Pulse Ox 98.3 F 102 H 20 108/67 96 01/15/17 16:00 01/15/17 16:00 01/15/17 16:00 01/15/17 16:00 01/15/17 16:00 - Labs Labs: 01/13/17 07:15 01/13/17 07:15 Attending/Attestation - Attestation I have personally seen and examined this patient.: Yes I have fully participated in the care of the patient.: Yes I have reviewed all pertinent clinical information, including history, physical exam and plan: Yes Notes (Text): Patient seen and examined with the resident. Agree with the resident's evaluation, assessment and plan. Primary diagnosis pneumonia
[2017-01-14] MEDS: Sodium Chloride 0.9% 1,000 ML IV SCH (23:49)
[2017-01-15] MEDS: Albuterol-Ipratrop 3 mg / 0.5 (3 ml) UD INH SCH ×2 (01:20→10:11)
[2017-01-15] MEDS: Oxycodone/Acetaminophen 5/325 mg Tab PO PRN (08:14)
[2017-01-15 08:22] VITALS: O2SAT 96
[2017-01-15] MEDS: Pantoprazole 40 mg EC Tab PO SCH (09:58)
[2017-01-15] MEDS: Fluticasone Nasal 50 mcg/Spray NAS SCH (09:59)
[2017-01-15] MEDS: Saccharomyces Boulardi 250 mg Cap PO SCH (10:00)
[2017-01-15 16:44] VITALS: BP 108/67; PULSE 102; RESP 20; TEMP 98.3
== END 2017-01-15 16:30 | disposition home or self-care (01) | DRG 90 ==
LOC: C.ER 17:40 → C.9E 22:50 → C.5T 01-10 10:55
PROVIDERS: ADMIT Family Medicine; ATTEND Internal Medicine
DX: J18.9 Pneumonia, unspecified organism (principal); F41.9 Anxiety disorder, unspecified; R07.89 Other chest pain; R06.02 Shortness of breath; J45.909 Unspecified asthma, uncomplicated; G89.29 Other chronic pain; M54.9 Dorsalgia, unspecified; F17.210 Nicotine dependence, cigarettes, uncomplicated; Z96.89 Presence of other specified functional implants